=== PATIENT | female | born 1935 | race Caucasian/White ===

== ENCOUNTER 2017-03-30 12:28 | Inpatient (IN) | payer MEDICARE ==
[2017-03-30 14:01] LABS: #Eosinphils 0.1 thou/uL (0.0-0.7); #Lymphocytes 1.1 thou/uL (1.20-3.40); #Monocytes 0.3 thou/uL (0.11-0.59); #Neutrophils 6.7 thou/uL (1.40-6.50); %Basophils 0.6 % (0.0-1.0); %Monocytes 4.1 % (0.0-10.0); Hematocrit 40.1 % (36.0-47.0); Mean Platelet Volume 8.6 fL (7.4-10.4); Red Blood Cell (RBC) Count 4.18 mill/uL (4.20-5.40); White Blood Cell (WBC) Count 8.2 thou/uL (4.8-10.8)
[2017-03-30 14:04] LABS: PTT 28.3 SEC (22.9-36.1); Prothrombin Time 13.7 SEC (12.0-14.7)
[2017-03-30 14:17] LABS: ALT (SGPT) 8 U/L (8-55); AST (SGOT) 20 U/L (5-34); Alkaline Phosphatase 93 U/L (40-150); Anion Gap 18 mmol/L (10-20); BUN (Urea Nitrogen) 34 mg/dL (9.8-20.1); Bilirubin, Total 0.8 mg/dL (0.2-1.2); CK (CPK) 78 U/L (29-168); Calc. Creatinine Clearance 0 mL/min (70-130); Calcium 9.4 mg/dL (7.8-10.44); Carbon Dioxide 20 mmol/L (23-31); Chloride 105 mmol/L (98-107); Estimated GFR-MDRD 27; Globulin 4.3 g/dL (2.4-3.5); Lipase 137 U/L (8-78); Magnesium 2.9 mg/dL (1.6-2.6); Protein, Total 7.9 g/dL (6.0-8.3)
[2017-03-30 14:29] LABS: Troponin I Less than 0.010 ng/mL (< 0.028)
[2017-03-30] MEDS ORDERED: Calcium Chloride 1 GM/10 ML Abboject SYRINGE ONE (14:48)
[2017-03-30] MEDS ORDERED: Dextrose 50% Abboject 50 ML SYRINGE ONE (14:48)
[2017-03-30] MEDS ORDERED: Insulin Regular 300 UNITS/3 ML VIAL ONE (14:48)
--- NOTE | 2017-03-30 15:55 | RAD ---
SINGLE VIEW OF CHEST: Date: 03/30/17 COMPARISON: None. HISTORY: Cough, shortness of breath, dizziness, and hallucinations. FINDINGS: Single view of the chest shows a normal sized cardiomediastinal silhouette. There is no evidence of consolidation, mass, or pleural effusion. Degenerative changes are seen in the spine. IMPRESSION: No evidence of acute cardiopulmonary disease. POS: [facility]
[2017-03-30 16:15] LABS: Bilirubin Negative (Negative); Blood, Urine Negative (Negative); Glucose, Urine (Dipstick) >=1000 mg/dL (Negative); Ketone, Urine Negative (Negative); Nitrite Negative (Negative); Protein, Urine (Dipstick) Negative (Neg-Trace); Urobilinogen 0.2 mg/dL (0.2-1.0)
[2017-03-30 16:18] LABS: Bacteria/HPF Rare-Few HPF (None Seen); Hyaline Casts/LPF 0-3 HYALINE CAST LPF (0-3 Hyaline); RBC/HPF None Seen HPF (0-3)
[2017-03-30] MEDS ORDERED: Ondansetron HCl/PF 4 MG/2 ML Vial IVP PRN (16:57)
[2017-03-30] MEDS ORDERED: Ondansetron ODT 4 MG TAB SL PRN (16:57)
[2017-03-30] MEDS ORDERED: Sodium Chloride 0.9% 1,000 ML IV SCH (18:00)
[2017-03-30 18:03] LABS: Anion Gap 11 mmol/L (10-20); BUN (Urea Nitrogen) 34 mg/dL (9.8-20.1); Calc. Creatinine Clearance 0 mL/min (70-130); Calcium 9.7 mg/dL (7.8-10.44); Carbon Dioxide 26 mmol/L (23-31); Chloride 108 mmol/L (98-107); Estimated GFR-MDRD 30
[2017-03-30] MEDS ORDERED: Fluticasone Propionate Nasal Spray 16 gm Bottle NASAL PRN (18:09)
[2017-03-30] MEDS ORDERED: Loratadine 5 MG/5 ML UDCUP PO PRN (18:09)
[2017-03-30] MEDS ORDERED: Dextrose 5% in Water 1,000 ML IV PRN (18:11)
[2017-03-30] MEDS ORDERED: HumaLOG 300 UNITS/3 ML VIAL SC PRN ×2 (18:11)
[2017-03-30] MEDS ORDERED: Dextrose 50% Abboject 50 ML SYRINGE SLOW IVP PRN (18:11)
[2017-03-30 19:33] VITALS: BMI 37.5
[2017-03-30] MEDS ORDERED: Donepezil HCl 10 MG TAB PO SCH (21:00)
[2017-03-30] MEDS: Fish Oil 1,000 MG CAP PO SCH (21:05)
--- NOTE | 2017-03-30 21:28 | HP-2 ---
CODE STATUS: Full. PRIMARY CARE PHYSICIAN: [facility]. ATTENDING PHYSICIAN: Dr. Reynoso. RESIDENT: Dr. Turner Wilson. HISTORIAN: Son. CHIEF COMPLAINT: Cough and congestion. HISTORY OF PRESENT ILLNESS: An 82-year-old female with a past medical history of Alzheimer dementia, who presents with 1 day history of cough and congestion. The patient went to Urgent Care and received a chest x-ray, which did not show pneumonia or volume overload. The patient has CHF. Son was concerned for pneumonia. Patient also states that she saw some dots at the corner of her eyes earlier. No fever. No complaints of dysuria. PAST MEDICAL HISTORY: CHF, hypertension, type 2 diabetes, Alzheimer's and atrial fibrillation. PAST SURGICAL HISTORY: Left shoulder, and hysterectomy. MEDICATIONS: Farxiga, amlodipine, pioglitazone, Onglyza, losartan, vitamin D3, donepezil, Crestor, Namenda and Seroquel. SOCIAL HISTORY: Denies alcohol, drug use or tobacco use. REVIEW OF SYSTEMS: Endorses vision changes. Endorses cough. Endorses congestion. Denies all other review of systems. PHYSICAL EXAMINATION: VITAL SIGNS: Blood pressure 171/74, pulse of 79, respiratory rate of 20 and T- max 97.8, pulse ox 94% on room air. Current weight 102. GENERAL: Alert and oriented x3, in no apparent distress, well-developed, well- nourished, obese, appropriate and interactive. EYES: PERRLA. EOMI. ENT: Nasal mucosa within normal limits. Oropharynx within normal limits. NECK: Supple. No lymphadenopathy, no thyromegaly. CARDIOVASCULAR: Regular rate and rhythm, 2/6 systolic murmur. RESPIRATORY: Normal effort. No retractions. Clear to auscultation bilaterally. SKIN: Warm and dry. ABDOMEN: Soft and nontender to palpation. Positive bowel sounds. NEUROLOGIC: No focal deficits. MUSCULOSKELETAL: Structurally within normal limits. LABORATORY DATA: CBC: White blood cell count 8.2, hemoglobin and hematocrit 13 and 40 and platelets 204. Chemistry: 137, 5.9, 105, 20, 34, 1.8, glucose 124, CK 78, CK-MB 1, troponin less than 0.01, BNP 125 and lipase 137. EKG: Sinus rhythm with some PVCs. Chest x-ray: No acute process. ASSESSMENT AND PLAN: This is an 82-year-old female with a past medical history of Alzheimer dementia, who presents with symptoms of cough and congestion, admitted for an acute kidney injury on chronic kidney disease associated with hyperkalemia. 1. RANCHO on CKD: The patient was admitted to inpatient and was started on low rate of fluids. The patient's urine sodium and creatinine were checked. 2.Hyperkalemia. Patient was given D5 and insulin and calcium chloride in the Emergency Department. We will repeat a BMP in the morning. Follow closely. 3. Diabetes type 2. We will get a hemoglobin A1c, Accu-Cheks and sliding scale insulin. 4. Hypertension. We will restart her home medications. 5. Alzheimer's. We will restart her home medications. 6. Atrial fibrillation. We will restart her home medications. 7. Activity: Ambulate with assist. 8. Diet: Heart healthy. 9. Deep venous thrombosis prophylaxis, sequential compression devices. We will provide fall precautions. 10. Probable upper respiratory tract infection. We will provide supportive care. DISPOSITION AND LENGTH OF STAY: One day. Symptomatic medications will be provided. History and physical exam as well as management discussed with Dr. Reynoso. MARY
[2017-03-30 23:47] LABS: Anion Gap 12 mmol/L (10-20); BUN (Urea Nitrogen) 32 mg/dL (9.8-20.1); Calc. Creatinine Clearance 48 mL/min (70-130); Calcium 9.2 mg/dL (7.8-10.44); Carbon Dioxide 25 mmol/L (23-31); Chloride 107 mmol/L (98-107); Estimated GFR-MDRD 34
[2017-03-31 06:24] LABS: #Eosinphils 0.3 thou/uL (0.0-0.7); #Lymphocytes 1.6 thou/uL (1.20-3.40); #Monocytes 0.4 thou/uL (0.11-0.59); #Neutrophils 4.1 thou/uL (1.40-6.50); %Basophils 0.3 % (0.0-1.0); %Eosinophils 4.6 % (0.0-10.0); %Lymphocytes 24.6 % (21.0-51.0); %Monocytes 5.9 % (0.0-10.0); Hematocrit 36.9 % (36.0-47.0); Mean Platelet Volume 8.7 fL (7.4-10.4); Red Blood Cell (RBC) Count 3.83 mill/uL (4.20-5.40); White Blood Cell (WBC) Count 6.4 thou/uL (4.8-10.8)
[2017-03-31 06:40] LABS: Anion Gap 10 mmol/L (10-20); BUN (Urea Nitrogen) 30 mg/dL (9.8-20.1); Calc. Creatinine Clearance 52 mL/min (70-130); Calcium 9.3 mg/dL (7.8-10.44); Carbon Dioxide 25 mmol/L (23-31); Chloride 108 mmol/L (98-107); Estimated GFR-MDRD 37; Magnesium 2.3 mg/dL (1.6-2.6); Phosphorus 3.4 mg/dL (2.3-4.7)
--- NOTE | 2017-03-31 07:21 | PDOC.FM ---
- Subjective Subjective: Pt doing better. Resting in bed. Denies any pain or complaints at this time. Denies any fever, chills or SOB. cough is doing better. No other questions or complaints. - Objective Vital Signs & Weight: Vital Signs (12 hours) Temp Pulse Resp BP Pulse Ox 03/31/17 07:11 96.1 F L 67 20 167/74 H 993 H 03/31/17 04:00 98.0 F 63 18 149/68 H 91 L 03/30/17 23:43 98.5 F 69 18 139/64 93 L 03/30/17 21:05 97.3 F L 73 18 141/70 H 96 03/30/17 20:00 97.3 F L 73 18 96 Weight Weight 99.79 kg I&O: 03/30/17 03/31/17 04/01/17 06:59 06:59 06:59 Intake Total 720 Output Total 625 Balance 95 Result Diagrams: 03/31/17 05:22 03/31/17 05:22 Radiology Reviewed by me: Yes Radiology: CXR 03/30: No evidence acute pulmonary dz Phys Exam - Physical Examination HEENT: moist MMs, oral pharynx no lesions Neck: no nodes Respiratory: no wheezing, no rales, no rhonchi, clear to auscultation bilateral Cardiovascular: RRR, no significant murmur, no rub, gallop Gastrointestinal: soft, non-tender, no distention, positive bowel sounds Neurological: non-focal Psychiatric: normal affect Skin: no rash, normal turgor, cap refill <2 seconds Dx/Plan (1) Hyperkalemia Code(s): E87.5 - HYPERKALEMIA Status: Acute (2) Alzheimer's dementia Code(s): G30.9 - ALZHEIMER'S DISEASE, UNSPECIFIED Status: Acute (3) Atrial fibrillation Code(s): I48.91 - UNSPECIFIED ATRIAL FIBRILLATION Status: Acute (4) Viral URI with cough Code(s): J06.9 - ACUTE UPPER RESPIRATORY INFECTION, UNSPECIFIED; B97.89 - OTH VIRAL AGENTS THE CAUSE OF DISEASES CLASSD ELSWHR Status: Acute - Plan Plan: Hyperkalemia (resolved) -given D5 and insulin. -Potassium has improved RANCHO on CKD (resolved) -Cr now at baseline Diabetes type 2 -Mild SSI HTN -cont [facility] A. Fib -cont home meds Viral URI -supportive care
[2017-03-31] MEDS: Fish Oil 1,000 MG CAP PO SCH (08:32)
[2017-03-31] MEDS ORDERED: AMLODIPIN PO SCH (09:00)
[2017-03-31] MEDS ORDERED: HCTHIAZID PO SCH (09:00)
[2017-03-31] MEDS ORDERED: Aspirin 81 mg Enteric Coated Tablet PO SCH (09:00)
[2017-03-31] MEDS ORDERED: [UNRECOGNIZED DRUG - OTHER] PO SCH (09:00)
[2017-03-31] MEDS ORDERED: OLMESARTAN PO SCH (09:00)
[2017-03-31] MEDS ORDERED: Hydrochlorothiazide 25 MG TAB PO SCH (09:00)
[2017-03-31] MEDS ORDERED: Alogliptin Benzoate 25 MG TABLET PO SCH (09:00)
[2017-03-31] MEDS ORDERED: Pioglitazone HCl 15 MG TAB PO SCH (09:00)
[2017-03-31 11:28] VITALS: BP 128/83; TEMP 97.4
--- NOTE | 2017-03-31 17:41 | HP ---
I have reviewed the history and physical of Dr. Abeba Tompkins and agreed with her assessment and plan . HISTORY OF PRESENT ILLNESS: Briefly, Ms. Sorensen was admitted with cough and congestion. She was af ebrile and had no respiratory distress. PHYSICAL EXAMINATION: VITAL SIGNS: Her blood pressure was 170/70, pulse rate 80, respirations were 18 and not labored. S he is afebrile, pulse ox is 94% on room air. HEENT: Clear. CARDIAC: Heart rhythm regular. LUNGS: Breath sounds are slightly diminished, but clear. No rales or wheezes noted. ABDOMEN: Soft. LABORATORY DATA: White count 8200, hemoglobin 13. Electrolytes were normal. There was a hyperkale mona, but it was a hemolyzed specimen and repeat was normal. The patient was rehydrated and discharged today. DISCHARGE DIAGNOSIS: Volume depletion, resolved.
== END 2017-03-31 14:16 | disposition home or self-care (01) | DRG 683 ==
LOC: ERS 12:28 → 2NO 16:40
PROVIDERS: ADMIT Family Medicine; ATTEND Family Medicine
DX: N17.9 Acute kidney failure, unspecified (principal); I13.0 Hypertensive heart and chronic kidney disease with heart failure and stage 1 through stage 4 chronic kidney disease, or unspecified chronic kidney disease; E86.9 Volume depletion, unspecified; E11.22 Type 2 diabetes mellitus with diabetic chronic kidney disease; G30.9 Alzheimer's disease, unspecified; I50.9 Heart failure, unspecified; I48.91 Unspecified atrial fibrillation; J06.9 Acute upper respiratory infection, unspecified; F02.80 Dementia in other diseases classified elsewhere, unspecified severity, without behavioral disturbance, psychotic disturbance, mood disturbance, and anxiety; N18.3 Chronic kidney disease, stage 3 (moderate)
CPT/HCPCS: 36415; 36416; 71010; 80048; 80053; 81003; 81015; 82553; 82570; 83690; 83735; 83880; 84100; 84300; 84484; 85025; 85610; 85730; 87040; 87086; 93005; 96374; 96375; J1815

== ENCOUNTER 2017-04-09 03:06 | Emergency (ER) | payer MEDICARE ==
[2017-04-09 04:11] LABS: #Eosinphils 0.3 thou/uL (0.0-0.7); #Lymphocytes 1.1 thou/uL (1.20-3.40); #Monocytes 0.5 thou/uL (0.11-0.59); #Neutrophils 6.3 thou/uL (1.40-6.50); %Basophils 0.1 % (0.0-1.0); %Eosinophils 3.9 % (0.0-10.0); %Lymphocytes 13.4 % (21.0-51.0); %Monocytes 5.6 % (0.0-10.0); Hematocrit 37.4 % (36.0-47.0); Mean Platelet Volume 7.8 fL (7.4-10.4); Red Blood Cell (RBC) Count 3.96 mill/uL (4.20-5.40); White Blood Cell (WBC) Count 8.2 thou/uL (4.8-10.8)
[2017-04-09 04:22] LABS: PTT 29.6 SEC (22.9-36.1); Prothrombin Time 13.7 SEC (12.0-14.7)
[2017-04-09 04:29] LABS: ALT (SGPT) 8 U/L (8-55); AST (SGOT) 8 U/L (5-34); Alkaline Phosphatase 82 U/L (40-150); Anion Gap 13 mmol/L (10-20); BUN (Urea Nitrogen) 39 mg/dL (9.8-20.1); Bilirubin, Total 0.9 mg/dL (0.2-1.2); CK (CPK) 57 U/L (29-168); Calc. Creatinine Clearance 0 mL/min (70-130); Calcium 9.7 mg/dL (7.8-10.44); Carbon Dioxide 24 mmol/L (23-31); Chloride 108 mmol/L (98-107); Estimated GFR-MDRD 33; Protein, Total 6.6 g/dL (6.0-8.3)
[2017-04-09 04:32] LABS: Troponin I Less than 0.010 ng/mL (< 0.028)
[2017-04-09 04:57] LABS: Bilirubin Negative (Negative); Blood, Urine Negative (Negative); Glucose, Urine (Dipstick) >=1000 mg/dL (Negative); Ketone, Urine Negative (Negative); Nitrite Negative (Negative); Protein, Urine (Dipstick) Negative (Neg-Trace); Urobilinogen 0.2 mg/dL (0.2-1.0)
[2017-04-09 04:59] LABS: Bacteria/HPF Rare-Few HPF (None Seen); Hyaline Casts/LPF 0-3 HYALINE CAST LPF (0-3 Hyaline)
[2017-04-09 05:26] LABS: RBC/HPF 0-3 HPF (0-3)
--- NOTE | 2017-04-09 07:58 | RAD ---
PORTABLE CHEST 1 VIEW: Date: 04/09/17 Time: 0411 hours HISTORY: Altered mental status. FINDINGS: Comparison made with exam of 03/30/17. The heart size is enlarged. There is continued elevation of the right hemidiaphragm. No confluent ar eas of consolidation, pneumothorax, rk pulmonary edema, or pleural effusions are seen. There are degenerative changes in the spine. IMPRESSION: No acute process. POS: [facility]
== END 2017-04-09 06:01 | disposition home or self-care (01) ==
LOC: ERS 03:06
DX: R45.1 Restlessness and agitation (principal); I48.91 Unspecified atrial fibrillation; E11.9 Type 2 diabetes mellitus without complications; I10 Essential (primary) hypertension; E78.5 Hyperlipidemia, unspecified; Z79.82 Long term (current) use of aspirin; Z79.899 Other long term (current) drug therapy
CPT/HCPCS: 36415; 36416; 71010; 80053; 81003; 81015; 82553; 84484; 85025; 85610; 85730; 93005; 94760

== ENCOUNTER 2018-08-22 13:10 | Observation (INO) | payer MEDICARE ==
[2018-08-22 14:56] LABS: Bilirubin Moderate (Negative); Blood, Urine Small (Negative); Clarity CLOUDY (Clear); Glucose, Urine (Dipstick) Negative (Negative); Leukocyte Large (Negative); Nitrite Negative (Negative); Protein, Urine (Dipstick) 100 mg/dL (Neg-Trace); pH, Urine 5.5 (5.0-9.0)
[2018-08-22 14:59] LABS: Bacteria/HPF 2+ HPF (None Seen); Hyaline Casts/LPF 0-3 HYALINE CAST LPF (0-3 Hyaline); Pathc Cast-AUWi Flag 0.68 (0-2.49); Squamous Epithelial 0-3 HPF (0-3)
--- NOTE | 2018-08-22 15:08 | RAD ---
PORTABLE AP CHEST X-RAY: HISTORY: Altered mental status. COMPARISON: 04/09/2017 FINDINGS: The cardiac silhouette is enlarged. The pulmonary vasculature is within normal limits. The lungs ar e clear. An anterior screw overlies the left humeral head. No other interval change. IMPRESSION: 1. No acute cardiopulmonary process. 2. Mild cardiomegaly. 3. Elevation of right hemidiaphragm. POS: [facility]
[2018-08-22 15:10] LABS: WBC/HPF 21-50 HPF (0-3)
[2018-08-22 15:15] LABS: #Eosinphils 0.1 thou/uL (0.0-0.7); #Lymphocytes 1.2 thou/uL (1.20-3.40); #Monocytes 0.3 thou/uL (0.11-0.59); #Neutrophils 6.2 thou/uL (1.40-6.50); %Eosinophils 1.5 % (0.0-10.0); %Monocytes 4.3 % (0.0-10.0); %Neutrophils 79.1 % (42.0-75.0); Hemoglobin 12.9 g/dL (12.0-16.0); Mean Corpuscular HGB CONC 31.4 g/dL (32.0-36.0); Mean Corpuscular Hemoglobin 31.5 pg (27.0-31.0); Mean Platelet Volume 8.5 fL (7.4-10.4); Platelet Count 193 thou/uL (130-400); RBC Distribution Width 13.8 % (11.5-14.5); White Blood Cell (WBC) Count 7.9 thou/uL (4.8-10.8)
[2018-08-22 15:38] LABS: ALT (SGPT) Less than 7 U/L (8-55); AST (SGOT) 12 U/L (5-34); Albumin 3.6 g/dL (3.4-4.8); Alkaline Phosphatase 76 U/L (40-150); Anion Gap 18 mmol/L (10-20); BUN (Urea Nitrogen) 38 mg/dL (9.8-20.1); Bilirubin, Total 1.4 mg/dL (0.2-1.2); Calc. Creatinine Clearance 0 mL/min (70-130); Calcium 9.6 mg/dL (7.8-10.44); Carbon Dioxide 24 mmol/L (23-31); Chloride 107 mmol/L (98-107); Estimated GFR-MDRD 26; Globulin 2.8 g/dL (2.4-3.5); Glucose 110 mg/dL (83-110); Lipase 38 U/L (8-78); Potassium 3.6 mmol/L (3.5-5.1); Protein, Total 6.4 g/dL (6.0-8.3); Sodium 145 mmol/L (136-145)
--- NOTE | 2018-08-22 16:17 | PDOC.FPRHP ---
- History of Present Illness Chief Complaint: decreased PO intake History of Present Illness: Patient is an 83YOF w/ a PMH significant for advanced Alzheimer's dementia and atrial fibrillation who was brought in by family due to decreased PO intake and weakness over the last week. Due to patient's advanced dementia, history was obtained from children who were at the bedside. Patient currently lives at home with her son who reports she has gotten progressively weaker, more fatigued, and had decreased PO intake since the start of this week. Son reports she may have had only 2 bottles of water to drink in the last week. Daughter endorses associated fatigue and says patient has been sleeping almost all day everyday of this week. Typically ambulates with walker at home but has only gotten up to go to bathroom. Has had a few episodes of incontinence as well. ED Course: 1g Rocephin & 1L NS - Allergies/Adverse Reactions Allergies Allergy/AdvReac Type Severity Reaction Status Date / Time bacitracin Allergy Verified 01/19/13 13:14 [From Neosporin ([id number])] bacitracin zinc Allergy Verified 01/19/13 13:14 [From Neosporin ([id number])] ketoconazole Allergy Verified 01/19/13 13:16 lanolin Allergy Verified 01/19/13 13:15 milk Allergy Verified 01/19/13 13:12 neomycin sulfate Allergy Verified 01/19/13 13:14 [From Neosporin ([id number])] Penicillins Allergy Verified 01/19/13 13:14 polymyxin B Allergy Verified 01/19/13 13:14 [From Neosporin ([id number])] Sulfa (Sulfonamide Allergy Verified 01/19/13 13:14 Antibiotics) VIT C Allergy Uncoded 01/19/13 13:13 - Home Medications Medication Instructions Recorded Confirmed Type Cetirizine HCl [Zyrtec] 10 mg PO DAILY PRN 01/19/13 03/30/17 History Menthol/Herbal Drugs [Cough Drops] 1 lozenge MM ASDIR PRN 01/19/13 03/30/17 History diphenhydrAMINE HCl [Benadryl] 25 mg PO Q6HR PRN 01/19/13 03/30/17 History Amlodipine [Norvasc] 5 mg PO DAILY 03/30/17 03/30/17 History Dapagliflozin Propanediol [Farxiga] 5 mg PO QAM 03/30/17 03/30/17 History Donepezil HCl 10 mg PO HS 03/30/17 03/30/17 History Losartan Potassium [Cozaar] 100 mg PO DAILY 03/30/17 03/30/17 History Memantine HCl [Namenda XR] 28 mg PO HS 03/30/17 03/30/17 History Pioglitazone HCl 15 mg PO DAILY 03/30/17 03/30/17 History QUEtiapine Fumarate [SEROquel] 25 mg PO HS 03/30/17 03/30/17 History Saxagliptin HCl [Onglyza] 2.5 mg PO DAILY 03/30/17 03/30/17 History Aspirin [Ecotrin Low Strength] 81 mg PO DAILY tab 03/31/17 Rx Cholecalciferol [Vitamin D3] 1,000 units PO DAILY tab 03/31/17 Rx Fish Oil 2,000 mg PO BID cap 03/31/17 Rx Fluticasone Propionate [Flonase 0 gm NASAL DAILYPRN PRN #0 bot 03/31/17 Rx Nasal Albert] Rosuvastatin [Crestor] 5 mg PO DAILY tab 03/31/17 Rx metFORMIN [Glucophage] 500 mg PO BID-WM tab 03/31/17 Rx - History PMHx: DMII, HTN, CHF, CKD? (sees Dr. Eduardo), dementia PSHx: hysterectomy, R shoulder surgery, bladder tact surgery, FHx: Father: CA Mother: ESRD 2/2 DMII Sister: alzheimer's Sister: breast [place] Social: Lives at home with son currently. Plans to discharge her to [facility] from hospital. No tobacco, EtOH, or drug use. - Review of Systems General: reports: weight/appetite/sleep changes, fatigue ENT: denies: nasal congestion Respiratory: reports: cough (worse at night when laying down per son). denies: congestion, shortness of breath Cardiovascular: denies: chest pain Gastrointestinal: reports: diarrhea. denies: nausea, vomiting, abdominal pain Genitourinary: reports: incontinence, other (+ frequency). denies: dysuria Skin: denies: rashes Musculoskeletal: reports: pain, swelling (LE edema no more than baseline) Neurological: reports: weakness - Vital signs BP: 146/86 HR: 70 RR: 20 Tmax: 98.6F Pox: 95% on RA Wt: 99.79 kg - Physical Exam Constitutional: NAD, well developed -Constitutional: Oriented to self only HEENT: normocephalic and atraumatic, grossly normal vision, grossly normal hearing Neck: supple, FROM Heart: RRR, pulses present, other (3/6 systolic murmur hear best at mitral listening post) Lungs: CTAB, no respiratory distress, no wheezing Abdomen: soft, bowel sounds present, other (suprapubic tenderness noted) Musculoskeletal: normal structure, ROM grossly normal, other (left mid back tenderness but not exquisitely tender) Neurological: no focal deficit, other (5/5 strength throughout) Skin: no rash/lesions, no jaundice, other (decreased turgor) Heme/Lymphatic: no unusual bruising or bleeding, no purpura, no petechia Psychiatric: normal mood and affect, other (poor recent and remote memory) FMR H&P: Results - Labs Result Diagrams: 08/22/18 15:02 08/22/18 15:02 Lab results: WBC 7.9 thou/uL (4.8-10.8) 08/22/18 15:02 Hgb 12.9 g/dL (12.0-16.0) 08/22/18 15:02 Hct 41.1 % (36.0-47.0) 08/22/18 15:02 MCV 100.0 fL (78.0-98.0) H 08/22/18 15:02 Plt Count 193 thou/uL (130-400) 08/22/18 15:02 Neutrophils % 79.1 % (42.0-75.0) H 08/22/18 15:02 Sodium 145 mmol/L (136-145) 08/22/18 15:02 Potassium 3.6 mmol/L (3.5-5.1) 08/22/18 15:02 Chloride 107 mmol/L (98-107) 08/22/18 15:02 Carbon Dioxide 24 mmol/L (23-31) 08/22/18 15:02 BUN 38 mg/dL (9.8-20.1) H 08/22/18 15:02 Creatinine 1.89 mg/dL (0.6-1.1) H 08/22/18 15:02 Glucose 110 mg/dL (83-110) 08/22/18 15:02 Calcium 9.6 mg/dL (7.8-10.44) 08/22/18 15:02 Total Bilirubin 1.4 mg/dL (0.2-1.2) H 08/22/18 15:02 AST 12 U/L (5-34) 08/22/18 15:02 ALT Less than 7 U/L (8-55) L 08/22/18 15:02 Alkaline Phosphatase 76 U/L (40-150) 08/22/18 15:02 Ammonia 30 umol/L (18-72) 08/22/18 15:02 CK-MB (CK-2) 1.0 ng/mL (0-6.6) 08/22/18 15:02 Serum Total Protein 6.4 g/dL (6.0-8.3) 08/22/18 15:02 Albumin 3.6 g/dL (3.4-4.8) 08/22/18 15:02 Lipase 38 U/L (8-78) 08/22/18 15:02 Urine Ketones Trace mg/dL (Negative) H 08/22/18 14:16 Urine Blood Small (Negative) H 08/22/18 14:16 Urine Nitrite Negative (Negative) 08/22/18 14:16 Ur Leukocyte Esterase Large (Negative) H 08/22/18 14:16 Urine RBC 7-10 HPF (0-3) H 08/22/18 14:16 Urine WBC 21-50 HPF (0-3) H 08/22/18 14:16 Ur Squamous Epith Cells 0-3 HPF (0-3) 08/22/18 14:16 Urine Bacteria 2+ HPF (None Seen) H 08/22/18 14:16 FMR H&P: A/P - Problem List (1) UTI (urinary tract infection) Current Visit: Yes Status: Acute (2) RANCHO (acute kidney injury) Current Visit: Yes Status: Acute Code(s): N17.9 - ACUTE KIDNEY FAILURE, UNSPECIFIED (3) CKD (chronic kidney disease) stage 3, GFR 30-59 ml/min Current Visit: Yes Status: Acute Code(s): N18.3 - CHRONIC KIDNEY DISEASE, STAGE 3 (MODERATE) (4) HTN (hypertension) Current Visit: Yes Status: Acute Code(s): I10 - ESSENTIAL (PRIMARY) HYPERTENSION (5) Diabetes Current Visit: Yes Status: Acute Code(s): E11.9 - TYPE 2 DIABETES MELLITUS WITHOUT COMPLICATIONS (6) CHF (congestive heart failure) Current Visit: Yes Status: Acute Code(s): I50.9 - HEART FAILURE, UNSPECIFIED (7) Alzheimer's dementia Current Visit: No Status: Acute Code(s): G30.9 - ALZHEIMER'S DISEASE, UNSPECIFIED (8) Atrial fibrillation Current Visit: No Status: Acute Code(s): I48.91 - UNSPECIFIED ATRIAL FIBRILLATION - Plan 83 yo F with PMH HTN, CHF, DM2, CKD3, alzheimers admitted for uncomplicated UTI. UTI, uncomplicated - UA with large leuk esterase, neg nitrites, high WBC, 2+ bacteria - appeared to have suprapubic tenderness but patient endorsed diffuse pain - VSS - Rocephin given in ED, will continue pending urine cx and sensitivity RANCHO on CKD3 - Cr 1.89, GFR 26 (baseline 1.56/32) - 2/2 volume depletion, decreased PO intake - s/p 1L in ED, will continue LR @ 140 maintenance and recheck on am labs Elevated troponin - most likely 2/2 demand - 0.033, will continue to trend Physical deconditioning - consult PT/OT HTN - BP stable - continue home amlodipine, losartan, aspirin, crestor Alzheimer's - continue home namenda, donepezil, quetiapine - mental status at baseline per family DM2 - all DM medications discontinued except for pioglitazone per family. Will not continue at this time considering reported hx of CHF CHF - unsure of history of this. Not on expected CHF meds and unknown EF - will monitor for signs of volume overload with fluid resuscitation Diet: HH/CC Ppx: SCDs Dispo: Admit to telemetry. consult case management to assist in discharge planning as family plans for patient to be discharged to "[facility] in [place] Case discussed with Dr. Nolen. FMR H&P: Upper Level - Pertinent history Nisreen Sorensen is a 83 year old female with a history of alzheimer's dementia who was brought to the ED by her son due to concern for worsening confusion and decreased PO intake with generalized weakness. - Pertinent findings Exam General: alert and oriented x 1 at baseline. Heart: irregularly irregular rate; 3-6/6 holosystolic murmur radiating to carotids. Lungs: clear to auscultation bilaterally. Abdomen: mild suprapubic tenderness. Labs: as described above. - Plan Date/Time: 08/22/18 [id number] I,Nuha Miller, have evaluated this patient and agree with findings/plan as outlined by advisory intern resident. Pertinent changes/additions are listed here. 1. Moderate dehydration. 2. Acute kidney injury. 3. indeterminately elevated troponin 4. Will admit patient to telemetry for observation. Plan to continue IV fluid hydration. will recheck BMP in AM. Regarding UTI will continue IV antibiotics and check urine culture. Pt's family wishes to place patient in a chcf. Will consult CM for assistance with this. Regarding chronic medical problems, will restart all home medications.
[2018-08-22] MEDS ORDERED: cefTRIAXone\\ROCEPHIN 1 GM VIAL ONE (16:18)
[2018-08-22] MEDS ORDERED: Ondansetron ODT 4 MG TAB PO PRN (16:49)
[2018-08-22] MEDS ORDERED: Dextrose 50% Abboject 50 ML SYRINGE SLOW IVP PRN (16:49)
[2018-08-22] MEDS ORDERED: Acetaminophen 325 MG TAB PO PRN (16:49)
[2018-08-22] MEDS ORDERED: Dextrose 5% in Water 1,000 ML IV PRN (16:49)
[2018-08-22 18:02] LABS: Hemoglobin A1c 5.5 % (4.0-6.0)
[2018-08-22 18:38] LABS: Troponin I 0.022 ng/mL (< 0.028)
[2018-08-22] MEDS ORDERED: Amlodipine 5 MG TAB PO SCH (20:15)
[2018-08-22] MEDS ORDERED: Losartan 25 MG TAB PO SCH (20:15)
[2018-08-22] MEDS: Donepezil HCl 10 MG TAB PO SCH (20:45)
[2018-08-22] MEDS: Rosuvastatin 10 MG TAB PO SCH (20:45)
[2018-08-22] MEDS: Lactated Ringer's 1,000 ML IV SCH ×2 (20:47)
[2018-08-22 21:27] LABS: Troponin I 0.023 ng/mL (< 0.028)
[2018-08-23] MEDS: Lactated Ringer's 1,000 ML IV SCH (03:44)
--- NOTE | 2018-08-23 06:01 | PDOC.FM ---
- Subjective Subjective: Ms. Sorensen has no specific complaints. Denies pain. Son present in room and says she slept well last night. Ate a few bites of chicken last night. Drinking water well. - Objective Vital Signs & Weight: Vital Signs (12 hours) Temp Pulse Resp BP BP Pulse Ox 08/23/18 03:56 98.0 F 62 18 169/70 H 95 08/22/18 23:00 97.9 F 68 16 145/61 H 94 L 08/22/18 20:47 63 176/76 H 08/22/18 18:35 97.5 F L 80 16 181/91 H 95 Weight Weight 91.881 kg I&O: 08/21/18 08/22/18 08/23/18 06:59 06:59 06:59 Intake Total 240 Output Total 300 Balance -60 Result Diagrams: 08/23/18 06:14 08/23/18 06:14 Phys Exam - Physical Examination Respiratory: no wheezing, clear to auscultation bilateral Cardiovascular: RRR 3/6 systolic murmur Gastrointestinal: soft, no distention, positive bowel sounds mild b/l LE edema Neurological: non-focal Dx/Plan (1) UTI (urinary tract infection) Status: Acute (2) RANCHO (acute kidney injury) Code(s): N17.9 - ACUTE KIDNEY FAILURE, UNSPECIFIED Status: Acute (3) CKD (chronic kidney disease) stage 3, GFR 30-59 ml/min Code(s): N18.3 - CHRONIC KIDNEY DISEASE, STAGE 3 (MODERATE) Status: Acute (4) HTN (hypertension) Code(s): I10 - ESSENTIAL (PRIMARY) HYPERTENSION Status: Acute (5) Diabetes Code(s): E11.9 - TYPE 2 DIABETES MELLITUS WITHOUT COMPLICATIONS Status: Acute (6) CHF (congestive heart failure) Code(s): I50.9 - HEART FAILURE, UNSPECIFIED Status: Acute (7) Alzheimer's dementia Code(s): G30.9 - ALZHEIMER'S DISEASE, UNSPECIFIED Status: Acute (8) Atrial fibrillation Code(s): I48.91 - UNSPECIFIED ATRIAL FIBRILLATION Status: Acute - Plan Plan: 83 yo F with PMH HTN, CHF, DM2, CKD3, alzheimers admitted for uncomplicated UTI. UTI, uncomplicated - UA with large leuk esterase, neg nitrites, high WBC, 2+ bacteria - appeared to have suprapubic tenderness but patient endorsed diffuse pain - VSS - Rocephin given in ED, will transition to PO today. Urine culture pending. RANCHO on CKD3, resolved - Cr 1.89, GFR 26 (baseline 1.56/32), improved on am labs today - 2/2 volume depletion, decreased PO intake - RANCHO resolved and patient tolerating liquids well. D/c IVF. Elevated troponin, resolved - most likely 2/2 demand - 0.033 max, trended down Physical deconditioning - consult PT/OT HTN - BP elevated overnight - continue home amlodipine, losartan, aspirin, crestor Alzheimer's - continue home namenda, donepezil, quetiapine - mental status at baseline per family DM2 - pioglitazone is only home med. Did not continue with pt hx CHF. - A1c 5.5, will not recommend any treatment CHF - unsure of history of this. Not on expected CHF meds and unknown EF - will monitor for signs of volume overload with fluid resuscitation Diet: HH/CC Ppx: SCDs Dispo: will discuss with case management as family desires discharge to [facility]. Patient likely appropriate for discharge today. .
[2018-08-23 06:39] LABS: #Eosinphils 0.2 thou/uL (0.0-0.7); #Lymphocytes 1.1 thou/uL (1.20-3.40); #Monocytes 0.4 thou/uL (0.11-0.59); #Neutrophils 4.1 thou/uL (1.40-6.50); %Basophils 0.4 % (0.0-1.0); %Eosinophils 3.6 % (0.0-10.0); %Lymphocytes 19.7 % (21.0-51.0); %Neutrophils 70.3 % (42.0-75.0); Hemoglobin 11.6 g/dL (12.0-16.0); Mean Corpuscular HGB CONC 31.1 g/dL (32.0-36.0); Mean Corpuscular Hemoglobin 31.4 pg (27.0-31.0); Mean Platelet Volume 8.7 fL (7.4-10.4); Platelet Count 166 thou/uL (130-400); RBC Distribution Width 13.7 % (11.5-14.5); White Blood Cell (WBC) Count 5.8 thou/uL (4.8-10.8)
[2018-08-23 06:58] LABS: Anion Gap 11 mmol/L (10-20); BUN (Urea Nitrogen) 30 mg/dL (9.8-20.1); Calc. Creatinine Clearance 49 mL/min (70-130); Calcium 8.9 mg/dL (7.8-10.44); Carbon Dioxide 25 mmol/L (23-31); Chloride 109 mmol/L (98-107); Estimated GFR-MDRD 39; Glucose 92 mg/dL (83-110); Potassium 3.3 mmol/L (3.5-5.1); Sodium 142 mmol/L (136-145)
[2018-08-23] MEDS: Amlodipine 5 MG TAB PO SCH (08:14)
[2018-08-23] MEDS: Losartan 25 MG TAB PO SCH (08:14)
[2018-08-23] MEDS: Aspirin 81 mg Enteric Coated Tablet PO SCH (08:14)
[2018-08-23] MEDS ORDERED: Prevnar 13-Val Conj/PF 0.5 ML SYRINGE IM ONE (09:00)
[2018-08-23] MEDS: Cefdinir 300 MG CAP PO SCH (20:47)
[2018-08-23] MEDS: Donepezil HCl 10 MG TAB PO SCH (20:47)
[2018-08-23] MEDS: Rosuvastatin 10 MG TAB PO SCH (20:47)
--- NOTE | 2018-08-24 06:06 | PDOC.FM ---
- Subjective Subjective: Ms Sorensen says she feels good and has no complaints. Family is in room and all again mention that she is unsafe to go home. Hopeful that she could be set up for rehab initially when discharged to [facility]. - Objective Vital Signs & Weight: Vital Signs (12 hours) Temp Pulse Resp BP Pulse Ox 08/24/18 04:33 97.3 F L 73 18 143/72 H 95 08/23/18 23:28 97.6 F 74 23 H 122/63 92 L 08/23/18 18:34 98.1 F 79 16 167/67 H 93 L Weight Weight 94.03 kg I&O: 08/22/18 08/23/18 08/24/18 06:59 06:59 07:59 Intake Total 1542 700 Output Total 300 1100 Balance 1242 -400 Result Diagrams: 08/24/18 05:16 08/24/18 05:16 Phys Exam - Physical Examination Constitutional: NAD Respiratory: no wheezing, clear to auscultation bilateral Cardiovascular: RRR 3/6 systolic murmur Gastrointestinal: soft, non-tender Neurological: non-focal Skin: normal turgor Dx/Plan (1) UTI (urinary tract infection) Status: Acute (2) RANCHO (acute kidney injury) Code(s): N17.9 - ACUTE KIDNEY FAILURE, UNSPECIFIED Status: Acute (3) CKD (chronic kidney disease) stage 3, GFR 30-59 ml/min Code(s): N18.3 - CHRONIC KIDNEY DISEASE, STAGE 3 (MODERATE) Status: Acute (4) HTN (hypertension) Code(s): I10 - ESSENTIAL (PRIMARY) HYPERTENSION Status: Acute (5) Diabetes Code(s): E11.9 - TYPE 2 DIABETES MELLITUS WITHOUT COMPLICATIONS Status: Acute (6) CHF (congestive heart failure) Code(s): I50.9 - HEART FAILURE, UNSPECIFIED Status: Acute (7) Alzheimer's dementia Code(s): G30.9 - ALZHEIMER'S DISEASE, UNSPECIFIED Status: Acute (8) Atrial fibrillation Code(s): I48.91 - UNSPECIFIED ATRIAL FIBRILLATION Status: Acute - Plan Plan: 83 yo F with PMH HTN, CHF, DM2, CKD3, alzheimers admitted for uncomplicated UTI. UTI, uncomplicated - UA with large leuk esterase, neg nitrites, high WBC, 2+ bacteria - VSS - Rocephin given in ED (08/22), omnicef (08/23) RANCHO on CKD3, resolved - Cr 1.89, GFR 26 (baseline 1.56/32), on admission - 2/2 volume depletion, decreased PO intake Elevated troponin, resolved - most likely 2/2 demand - 0.033 max, trended down Physical deconditioning - consult PT/OT HTN - BP stable - continue home amlodipine, losartan, aspirin, crestor Alzheimer's - continue home namenda, donepezil, quetiapine - mental status at baseline per family DM2 - pioglitazone is only home med. Did not continue with pt hx CHF. - A1c 5.5, will not recommend any treatment at discharge CHF - unsure of history of this. Not on expected CHF meds and unknown EF - will monitor for signs of volume overload with fluid resuscitation Diet: HH/CC Ppx: SCDs Dispo: patient appropriate for discharge, pending placement at [facility] which likely will not happen saturday at least. Family interested in rehab services if possible at [facility].
[2018-08-24 06:08] LABS: #Eosinphils 0.3 thou/uL (0.0-0.7); #Lymphocytes 1.3 thou/uL (1.20-3.40); #Monocytes 0.5 thou/uL (0.11-0.59); #Neutrophils 4.3 thou/uL (1.40-6.50); %Basophils 0.3 % (0.0-1.0); %Eosinophils 4.1 % (0.0-10.0); %Lymphocytes 19.8 % (21.0-51.0); %Monocytes 7.2 % (0.0-10.0); %Neutrophils 68.6 % (42.0-75.0); Hemoglobin 11.6 g/dL (12.0-16.0); Mean Corpuscular HGB CONC 30.7 g/dL (32.0-36.0); Mean Corpuscular Hemoglobin 31.2 pg (27.0-31.0); Mean Platelet Volume 8.7 fL (7.4-10.4); Platelet Count 168 thou/uL (130-400); RBC Distribution Width 13.9 % (11.5-14.5); Red Blood Cell (RBC) Count 3.71 mill/uL (4.20-5.40); White Blood Cell (WBC) Count 6.3 thou/uL (4.8-10.8)
[2018-08-24 06:29] LABS: Anion Gap 11 mmol/L (10-20); BUN (Urea Nitrogen) 25 mg/dL (9.8-20.1); Calc. Creatinine Clearance 51 mL/min (70-130); Calcium 8.8 mg/dL (7.8-10.44); Carbon Dioxide 28 mmol/L (23-31); Chloride 108 mmol/L (98-107); Estimated GFR-MDRD 40; Glucose 88 mg/dL (83-110); Potassium 3.1 mmol/L (3.5-5.1); Sodium 144 mmol/L (136-145)
[2018-08-24] MEDS: Losartan 25 MG TAB PO SCH (08:08)
[2018-08-24] MEDS: Aspirin 81 mg Enteric Coated Tablet PO SCH (08:09)
[2018-08-24] MEDS: Amlodipine 5 MG TAB PO SCH (08:09)
[2018-08-24] MEDS: Cefdinir 300 MG CAP PO SCH ×2 (08:09→21:31)
[2018-08-24] MEDS: Donepezil HCl 10 MG TAB PO SCH (21:32)
[2018-08-24] MEDS: Rosuvastatin 10 MG TAB PO SCH (21:32)
[2018-08-25 05:32] LABS: #Eosinphils 0.3 thou/uL (0.0-0.7); #Lymphocytes 1.4 thou/uL (1.20-3.40); #Monocytes 0.3 thou/uL (0.11-0.59); #Neutrophils 3.7 thou/uL (1.40-6.50); %Basophils 0.2 % (0.0-1.0); %Eosinophils 4.6 % (0.0-10.0); %Monocytes 5.7 % (0.0-10.0); %Neutrophils 64.5 % (42.0-75.0); Hemoglobin 11.8 g/dL (12.0-16.0); Mean Corpuscular HGB CONC 30.2 g/dL (32.0-36.0); Mean Corpuscular Hemoglobin 31.1 pg (27.0-31.0); Mean Platelet Volume 9.1 fL (7.4-10.4); Platelet Count 168 thou/uL (130-400); RBC Distribution Width 13.9 % (11.5-14.5); White Blood Cell (WBC) Count 5.7 thou/uL (4.8-10.8)
--- NOTE | 2018-08-25 05:48 | PDOC.FM ---
- Subjective Subjective: Patient feels well this AM, no complaints. Daughter in law present in the room. - Objective Vital Signs & Weight: Vital Signs (12 hours) Temp Pulse Resp BP Pulse Ox 08/24/18 23:16 98.0 F 77 18 121/58 L 93 L 08/24/18 19:17 97.7 F 91 20 150/78 H 94 L Weight Weight 94.03 kg I&O: 08/23/18 08/24/18 08/25/18 05:59 06:59 06:59 Intake Total 800 Output Total 300 Balance 500 Result Diagrams: 08/25/18 05:00 08/25/18 05:00 Phys Exam - Physical Examination Constitutional: NAD HEENT: moist MMs crackles bases bilaterally, decreased air movement to the bases irregularly irregular rhythm, 2/6 systolic murmur Gastrointestinal: soft, no distention, positive bowel sounds minimal diffuse tenderness to palpation, no rebound or guarding Musculoskeletal: no edema tenderness to legs bilaterally Neurological: moves all 4 limbs AO to self only Dx/Plan (1) UTI (urinary tract infection) Status: Acute (2) RANCHO (acute kidney injury) Code(s): N17.9 - ACUTE KIDNEY FAILURE, UNSPECIFIED Status: Acute (3) CHF (congestive heart failure) Code(s): I50.9 - HEART FAILURE, UNSPECIFIED Status: Chronic (4) CKD (chronic kidney disease) stage 3, GFR 30-59 ml/min Code(s): N18.3 - CHRONIC KIDNEY DISEASE, STAGE 3 (MODERATE) Status: Chronic (5) Diabetes Code(s): E11.9 - TYPE 2 DIABETES MELLITUS WITHOUT COMPLICATIONS Status: Chronic (6) HTN (hypertension) Code(s): I10 - ESSENTIAL (PRIMARY) HYPERTENSION Status: Chronic (7) Alzheimer's dementia Code(s): G30.9 - ALZHEIMER'S DISEASE, UNSPECIFIED Status: Chronic (8) Atrial fibrillation Code(s): I48.91 - UNSPECIFIED ATRIAL FIBRILLATION Status: Chronic - Plan Plan: 83 yo F with PMH HTN, CHF, DM2, CKD3, alzheimers admitted for uncomplicated UTI. UTI, uncomplicated - UA with large leuk esterase, neg nitrites, high WBC, 2+ bacteria - VSS - Rocephin given in ED (08/22), continue omnicef (08/23) RANCHO on CKD3, resolved - Cr 1.89, GFR 26 (baseline 1.56/32), on admission - 2/2 volume depletion, decreased PO intake Elevated troponin, resolved - most likely 2/2 demand - 0.033 max, trended down Physical deconditioning - consult PT/OT HTN - BP stable - continue home amlodipine, losartan, aspirin, crestor Alzheimer Dementia - continue home namenda, donepezil, quetiapine - mental status at baseline per family DM2 - pioglitazone is only home med. Did not continue with pt hx CHF. - A1c 5.5, will not recommend any treatment at discharge CHF - unsure of history of this. Daughter in law not aware. Not on expected CHF meds and unknown EF - lung crackles on exam, mild cardiomegaly on CXR 08/22 but no fluid overload at that time - BNP pending Hx Atrial fib - Sees Dr. Law outpatient - Atrial fib 60-80s bpm overnight Diet: HH/CC Ppx: SCDs Dispo: patient appropriate for discharge, pending placement at [facility] which likely will not happen saturday at least. Family interested in rehab services if possible at [facility].
[2018-08-25 05:50] LABS: Anion Gap 13 mmol/L (10-20); BUN (Urea Nitrogen) 24 mg/dL (9.8-20.1); Calc. Creatinine Clearance 54 mL/min (70-130); Calcium 8.9 mg/dL (7.8-10.44); Carbon Dioxide 24 mmol/L (23-31); Chloride 110 mmol/L (98-107); Estimated GFR-MDRD 42; Glucose 87 mg/dL (83-110); Potassium 3.6 mmol/L (3.5-5.1); Sodium 143 mmol/L (136-145)
[2018-08-25] MEDS: Cefdinir 300 MG CAP PO SCH ×2 (08:11→20:53)
[2018-08-25] MEDS: Aspirin 81 mg Enteric Coated Tablet PO SCH (08:11)
[2018-08-25] MEDS: Amlodipine 5 MG TAB PO SCH (08:11)
[2018-08-25] MEDS: Losartan 25 MG TAB PO SCH (08:11)
--- NOTE | 2018-08-25 09:08 | HP ---
ADDENDUM: Please see the notes in the history and physical from Dr. Balderrama and also progress note from Dr. Balderrama, for which I agree. The patient was seen, evaluated, and discussed with the residents by the bedside. HISTORY OF PRESENT ILLNESS: This is an 83-year-old female, who sounds like she has pretty advanced dementia and atrial fibrillation, who is being brought in by family and just saying decreased p.o. intake, feeling weaker, nor she has had activities of daily living at home and felt like she needs long-term placement and was found to have a urinary tract infection and is currently being given antibiotics for that. ALLERGIES: EXTENSIVE ALLERGY LIST, PER DR. BALDERRAMA'S HISTORY AND PHYSICAL, FOR WHICH I AGREE. PAST MEDICAL HISTORY: Per Dr. Balderrama's history and physical, for which I agree. PAST SURGICAL HISTORY: Per Dr. Balderrama's history and physical, for which I agree. FAMILY HISTORY: Per Dr. Balderrama's history and physical, for which I agree. SOCIAL HISTORY: Per Dr. Balderrama's history and physical, for which I agree. MEDICATIONS AT HOME: Per Dr. Balderrama's history and physical, for which I agree. REVIEW OF SYSTEMS: Per Dr. Balderrama's history and physical, for which I agree. PHYSICAL EXAMINATION: GENERAL: Mildly depressed, flatten affect. No apparent distress. No respiratory distress. Overweight. Alert to name only. Knows there is no family in the room. VITAL SIGNS: Stable. HEENT: Conjunctivae not particularly pale. Sclerae anicteric. Moist mucosa. NECK: No lymphadenopathy or thyromegaly. CHEST: Clear. HEART: Regular rate and rhythm. NEUROLOGIC: Fine. No major abnormalities. LABORATORY DATA: Initial lab workup, white count fine and hemoglobin at 12.9. Urinalysis did look dirty. Initial chemistries, potassium is a little bit low at 3.3, sugar was just slightly elevated. Creatinine that was elevated at 1.89 and it seems to be above what we think her baselines is. Troponin is a little bit elevated, but unclear of the significance. Thyroid is okay. ASSESSMENT AND PLAN: 1. Urinary tract infection causing worsening activity of daily living and worsening weakness. 2. Dementia. 3. Diabetes history. PLAN: Continuing antibiotics, waiting on microbiology. Then, we will probably switch over to p.o. antibiotics. We will get Physical Therapy involved. We will start working on discharge planning. It sounds like they are wanting to get [place] a [place] [facility] because of the weekend, that probably will not have until Saturday. Continue same blood pressure pills. Continue the same Alzheimer pills and IV fluids and antibiotics. Job ID: [id number]
--- NOTE | 2018-08-25 11:21 | PRG ---
DATE OF SERVICE: 08/24/2018 ADDENDUM: Please see the progress note from Dr. Anglin, for which I agree. The patient was seen, evaluated, discussed, and examined with the residents by bedside. This is an 83-year-old here for decreased appetite and general diminish in overall functioning and was found to have UTI and initially some renal insufficiency, which has improved with some fluids. Now just on p.o. Omnicef and does seem to be improving, very deconditioned when she was walking yesterday sounds like her blood pressure had increased and she almost passed out and was feeling better and so was taken back to the room, but sounds like major deconditioning. Really nothing change on exam. At this point in time, we are going to try to get her in a longterm facility for a more extensive rehab and then eventual long-term place in a senior living. This sounds like family's plan for and seems appropriate and necessary. Job ID: [id number]
[2018-08-25] MEDS: Donepezil HCl 10 MG TAB PO SCH (20:53)
[2018-08-26 05:21] LABS: #Eosinphils 0.2 thou/uL (0.0-0.7); #Lymphocytes 1.4 thou/uL (1.20-3.40); #Monocytes 0.3 thou/uL (0.11-0.59); #Neutrophils 3.4 thou/uL (1.40-6.50); %Basophils 0.5 % (0.0-1.0); %Eosinophils 4.3 % (0.0-10.0); %Lymphocytes 26.3 % (21.0-51.0); %Monocytes 5.8 % (0.0-10.0); %Neutrophils 63.1 % (42.0-75.0); Mean Corpuscular HGB CONC 31.4 g/dL (32.0-36.0); Mean Corpuscular Hemoglobin 31.2 pg (27.0-31.0); Mean Corpuscular Volume 99.3 fL (78.0-98.0); Mean Platelet Volume 8.5 fL (7.4-10.4); Platelet Count 157 thou/uL (130-400); RBC Distribution Width 13.7 % (11.5-14.5); Red Blood Cell (RBC) Count 3.54 mill/uL (4.20-5.40); White Blood Cell (WBC) Count 5.4 thou/uL (4.8-10.8)
[2018-08-26 05:35] LABS: Anion Gap 9 mmol/L (10-20); BUN (Urea Nitrogen) 21 mg/dL (9.8-20.1); Calc. Creatinine Clearance 61 mL/min (70-130); Calcium 8.8 mg/dL (7.8-10.44); Carbon Dioxide 31 mmol/L (23-31); Chloride 108 mmol/L (98-107); Estimated GFR-MDRD 49; Glucose 93 mg/dL (83-110); Potassium 3.2 mmol/L (3.5-5.1); Sodium 145 mmol/L (136-145)
--- NOTE | 2018-08-26 06:36 | PDOC.FM ---
- Subjective Subjective: Patient reports she is sleepy. Daughter reports that the patient slept well overnight. OT came by and saw her yesterday. Daughter reports PT did not do therapy because of a concern with her blood pressure. - Objective Vital Signs & Weight: Vital Signs (12 hours) Temp Pulse Resp BP Pulse Ox 08/26/18 04:56 98.4 F 60 14 144/67 H 95 08/25/18 23:21 98.0 F 72 16 141/66 H 96 08/25/18 19:50 97.2 F L 84 16 144/79 H 93 L Weight Admit Weight 91.881 kg Weight 94.529 kg I&O: 08/24/18 08/25/18 08/26/18 06:59 06:59 06:59 Intake Total 1150 970 Output Total 300 1200 Balance 850 -230 Result Diagrams: 08/26/18 04:56 08/26/18 04:56 Phys Exam - Physical Examination Constitutional: NAD HEENT: PERRLA, moist MMs Neck: no nodes, supple Respiratory: no wheezing, no rales, no rhonchi somewhat diminished breath sounds at bases, mild crackles at bases 3/6 systolic murmur, regularly irregular rhythm Gastrointestinal: soft, non-tender, no distention, positive bowel sounds Musculoskeletal: pulses present trace pitting edema bilat, good cap refill <2 sec Neurological: non-focal, moves all 4 limbs Deviation from normal: flat affect, tired appearing Skin: no rash, normal turgor Dx/Plan (1) UTI (urinary tract infection) Status: Acute (2) RANCHO (acute kidney injury) Code(s): N17.9 - ACUTE KIDNEY FAILURE, UNSPECIFIED Status: Acute (3) CHF (congestive heart failure) Code(s): I50.9 - HEART FAILURE, UNSPECIFIED Status: Chronic (4) CKD (chronic kidney disease) stage 3, GFR 30-59 ml/min Code(s): N18.3 - CHRONIC KIDNEY DISEASE, STAGE 3 (MODERATE) Status: Chronic (5) Diabetes Code(s): E11.9 - TYPE 2 DIABETES MELLITUS WITHOUT COMPLICATIONS Status: Chronic (6) HTN (hypertension) Code(s): I10 - ESSENTIAL (PRIMARY) HYPERTENSION Status: Chronic (7) Alzheimer's dementia Code(s): G30.9 - ALZHEIMER'S DISEASE, UNSPECIFIED Status: Chronic (8) Atrial fibrillation Code(s): I48.91 - UNSPECIFIED ATRIAL FIBRILLATION Status: Chronic - Plan Plan: 83 yo F with PMH HTN, CHF, DM2, CKD3, alzheimers admitted for uncomplicated UTI. UTI, uncomplicated - UA with large leuk esterase, neg nitrites, high WBC, 2+ bacteria - VSS - Rocephin given in ED (08/22), continue omnicef (08/23), discontinue after today ( day 5) Mild hypokalemia -Will replace PO potassium this AM RANCHO on CKD3, resolved - Cr 1.89, GFR 26 (baseline 1.56/32), on admission - 2/2 volume depletion, decreased PO intake Elevated troponin, resolved - most likely 2/2 demand - 0.033 max, trended down Physical deconditioning - consult PT/OT HTN - BP stable - continue home amlodipine, losartan, aspirin (discontinued crestor) Alzheimer Dementia - continue home namenda, quetiapine (d/c donepezil) - mental status at baseline per family DM2 - pioglitazone is only home med. Did not continue with pt hx CHF. - A1c 5.5, will not recommend any treatment at discharge CHF - unsure of history of this. Daughter in law not aware. Not on expected CHF meds and unknown EF - lung crackles on exam, mild cardiomegaly on CXR 08/22 but no fluid overload at that time - BNP elevated Hx Atrial fib - Sees Dr. Law outpatient - Atrial fib 60-80s bpm, with episode of afib with RVR into 160s overnight Diet: HH/CC Ppx: SCDs Dispo: patient appropriate for discharge, pending placement at [facility]. Family interested in rehab services if possible at [facility]. Pt approved pending insurance authorization.
[2018-08-26] MEDS ORDERED: Potassium Chloride 20 MEQ TAB PO SCH (06:45)
--- NOTE | 2018-08-26 07:59 | PRG ---
DATE OF SERVICE: ADDENDUM: Addendum to the note of Dr. Holli Ferreira. Ms. Sorensen is an 83-year-old white lady with advanced dementia. She was admitted with progressive weakness and poor p.o. intake. I also note she is taking many medications and I have asked our residents to look these over and see if we can discontinue some of these. In the event, her lab this morning showed a white count of 7900, hemoglobin 12.9 with hematocrit of 41.1. Her chemistries: Sodium was 143, potassium 3.6, chloride was 110, bicarb was 24, BUN was 24, creatinine was 1.22. She also was noted to have abnormal urinalysis. She is really unable to describe any urinary symptoms too so we are going ahead and treating her presumptively. In the event clinically this morning, she seems to be improved. Daughter was in the room with her and we discussed the case with her. She will likely be ready for placement in a day or two. Job ID: [id number]
[2018-08-26] MEDS: Amlodipine 5 MG TAB PO SCH (08:53)
[2018-08-26] MEDS: Cefdinir 300 MG CAP PO SCH ×2 (08:54→20:23)
[2018-08-26] MEDS: Losartan 25 MG TAB PO SCH (08:54)
[2018-08-26] MEDS: Aspirin 81 mg Enteric Coated Tablet PO SCH (08:54)
--- NOTE | 2018-08-26 12:14 | PRG ---
DATE OF SERVICE: 08/26/2018 SUBJECTIVE: Ms. Sorensen is resting quietly in bed, in no distress. We are still awaiting placement to [facility]. We are adding additional medication for her atrial fib with RVR. Clinically, she is stable and awaits placement. Job ID: [id number]
[2018-08-26] MEDS: Donepezil HCl 10 MG TAB PO SCH (20:23)
--- NOTE | 2018-08-27 06:01 | PDOC.FM ---
- Subjective Subjective: Patient reports she is feeling well this morning, no pain. - Objective Vital Signs & Weight: Vital Signs (12 hours) Temp Pulse Resp BP Pulse Ox 08/27/18 04:06 97.4 F L 45 L 17 182/77 H 95 08/26/18 23:36 97.5 F L 65 16 144/66 H 95 08/26/18 18:29 98.6 F 63 20 137/65 95 Weight Admit Weight 91.881 kg Weight 94.529 kg I&O: 08/25/18 08/26/18 08/27/18 06:59 06:59 06:59 Intake Total 1150 970 900 Output Total 300 1200 1200 Balance 850 -230 -300 Result Diagrams: 08/26/18 04:56 08/26/18 04:56 Phys Exam - Physical Examination Constitutional: NAD HEENT: moist MMs crackles on bilat lower lobes Cardiovascular: RRR bradycardic overnight Gastrointestinal: soft, non-tender, no distention, positive bowel sounds Musculoskeletal: no edema, pulses present Psychiatric: normal affect Skin: no rash, cap refill <2 seconds Dx/Plan (1) UTI (urinary tract infection) Status: Acute (2) RANCHO (acute kidney injury) Code(s): N17.9 - ACUTE KIDNEY FAILURE, UNSPECIFIED Status: Acute (3) CHF (congestive heart failure) Code(s): I50.9 - HEART FAILURE, UNSPECIFIED Status: Chronic (4) CKD (chronic kidney disease) stage 3, GFR 30-59 ml/min Code(s): N18.3 - CHRONIC KIDNEY DISEASE, STAGE 3 (MODERATE) Status: Chronic (5) Diabetes Code(s): E11.9 - TYPE 2 DIABETES MELLITUS WITHOUT COMPLICATIONS Status: Chronic (6) HTN (hypertension) Code(s): I10 - ESSENTIAL (PRIMARY) HYPERTENSION Status: Chronic (7) Alzheimer's dementia Code(s): G30.9 - ALZHEIMER'S DISEASE, UNSPECIFIED Status: Chronic (8) Atrial fibrillation Code(s): I48.91 - UNSPECIFIED ATRIAL FIBRILLATION Status: Chronic - Plan Plan: 83 yo F with PMH HTN, CHF, DM2, CKD3, alzheimers admitted for uncomplicated UTI. UTI, uncomplicated - UA with large leuk esterase, neg nitrites, high WBC, 2+ bacteria - VSS - Rocephin given in ED (08/22), continue omnicef (08/23), discontinue after today ( day 5) Mild hypokalemia -monitor and replace as necessary RANCHO on CKD3, resolved - Cr 1.89, GFR 26 (baseline 1.56/32), on admission - 2/2 volume depletion, decreased PO intake Elevated troponin, resolved - most likely 2/2 demand - 0.033 max, trended down Physical deconditioning - consult PT/OT HTN - BP elevated - continue home amlodipine, losartan, aspirin (discontinued crestor) Alzheimer Dementia - continue home namenda, quetiapine (d/c donepezil) - mental status at baseline per family DM2 - pioglitazone is only home med. Did not continue with pt hx CHF. - A1c 5.5, will not recommend any treatment at discharge CHF - Daughter reports she has CHF - lung crackles on exam, mild cardiomegaly on CXR 08/22 but no fluid overload at that time - BNP elevated - 1x dose PO lasix Hx Atrial fib - Sees Dr. Law outpatient - Atrial fib 60-80s bpm, with episode of afib with RVR into 160s 08/25 - 024 pt episode bradying down to the 30 and 40's 08/26. industrial cleaning technician notified that there was a 2.8 second pause - discontinue metoprolol Diet: HH/CC Ppx: SCDs Dispo: patient appropriate for discharge, pending placement at [facility]. Family interested in rehab services if possible at [facility]. Pt approved pending insurance authorization.
[2018-08-27] MEDS: Aspirin 81 mg Enteric Coated Tablet PO SCH (08:38)
[2018-08-27] MEDS ORDERED: Furosemide 20 MG TAB PO SCH (09:00)
[2018-08-27] MEDS: Losartan 25 MG TAB PO SCH (09:08)
[2018-08-27] MEDS: Amlodipine 5 MG TAB PO SCH (09:08)
--- NOTE | 2018-08-27 11:50 | PRG ---
DATE OF SERVICE: 08/27/2018 SUBJECTIVE: During the night, Ms. Sorensen's pulse rate dropped into the low 30s. This is after we had started a very low dose of metoprolol for her atrial fib with RVR. This has since been discontinued. 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 We will ask Cardiology for an opinion and proceed. Job ID: [id number]
[2018-08-27 14:42] VITALS: BMI 35.9
[2018-08-27] MEDS: Donepezil HCl 10 MG TAB PO SCH (20:28)
--- NOTE | 2018-08-27 20:46 | CON ---
DATE OF CONSULTATION: 08/27/2018 PRIMARY IMAGING ASSISTANT: Jeanmarie Law MD REASON FOR CONSULTATION: Bradycardia. HISTORY OF PRESENT ILLNESS: Ms. Sorensen is a pleasant 83-year-old white female, who is demented, who comes to the hospital for change in her mental status. She was found to have a urinary tract infection and has been getting antibiotics for that. She was admitted to telemetry floor as she has a history of chronic atrial fibrillation. During telemetry monitoring, she has as a small quick bouts of rapid ventricular response, heart rate going up to the 170s. This was minimally symptomatic and then it just converted back down into rate controlled atrial fibrillation, where she is at, at this time. Over the last few days, they have marked several episodes on telemetry where she has had pauses, the longest one was 3.1 seconds, most of them are in the 1.5 to 2.5 range. She has been asymptomatic. No syncope or presyncope. On my evaluation, both sons are in her room and tell me they would like to be as conservative as they can be. I told them that I did not think she was a candidate for any pacemaker at this time and they responded I responded that I did know that; however, I do not think she needs pacemaker at this time. Otherwise, Ms. Sorensen has no complaints for me. PAST MEDICAL HISTORY: 1. Type 2 diabetes. 2. Hypertension. 3. CHF. 4. Chronic kidney disease. 5. Dementia. PAST SURGICAL HISTORY: 1. Hysterectomy. 2. Right shoulder surgery. 3. Bladder surgery. 4. . FAMILY HISTORY: Noncontributory. SOCIAL HISTORY: No alcohol, tobacco, or drugs. REVIEW OF SYSTEMS: A 12-point review of systems is noncontributory as the patient is unable to give any good history. PHYSICAL EXAMINATION: VITAL SIGNS: Temperature 98.5, pulse 60, respiratory rate 16, saturating 94% on room air, and blood pressure 138/63. GENERAL: Awake, alert, and oriented to person only, in no distress. HEENT: Normocephalic, atraumatic. NECK: Supple. LUNGS: Clear. CARDIOVASCULAR: Irregularly irregular. Heart rate in the 60s. ABDOMEN: Soft. Positive bowel sounds. EXTREMITIES: No edema. SKIN: Warm and dry. LABORATORY DATA: Laboratory work was reviewed. CBC was reviewed. Chemistries were reviewed. The last basic metabolic was on 08/26/2018 and her potassium was 3.2. UA was reviewed. ASSESSMENT AND PLAN: 1. Urinary tract infection. 2. Advanced dementia. 3. Chronic atrial fibrillation. PLAN: 1. No indication for pacemaker placement at this time given that the pauses of less than 5 seconds. 2. Brief episodes of RVR urinary tract infection. 3. 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 The family is not interested in any pacemaker at this time. However, if it comes to the point, then may consider it. 4. Would continue current medications. 5. Would try to keep the potassium above 3.5, ideally above 4. Replace as appropriate. 6. Would stay away from any AV emy blocking agents for now. 7. Further recommendations per Dr. Law who is primary category development manager, tomorrow morning. Job ID: [id number]
--- NOTE | 2018-08-28 06:20 | PDOC.FM ---
- Subjective Subjective: No complaints this morning. Denies Chest pain/ SOB. Reports she is eating and drinking well. - Objective Vital Signs & Weight: Vital Signs (12 hours) Temp Pulse Resp BP Pulse Ox 08/28/18 03:51 97.3 F L 63 16 155/72 H 96 08/28/18 00:00 97.6 F 71 16 135/67 97 08/27/18 20:00 98.0 F 67 16 145/67 H 94 L Weight Admit Weight 91.881 kg Weight 94.801 kg I&O: 08/26/18 08/27/18 08/28/18 06:59 06:59 06:59 Intake Total 970 1000 720 Output Total 1200 1200 Balance -230 -200 720 Result Diagrams: 08/26/18 04:56 08/28/18 07:00 Phys Exam - Physical Examination HEENT: moist MMs Respiratory: no wheezing expiratory crackles in bases bilat Cardiovascular: RRR 3/6 systolic murmur Gastrointestinal: soft, non-tender, no distention Musculoskeletal: no edema, pulses present Neurological: non-focal, moves all 4 limbs Psychiatric: normal affect Skin: normal turgor, cap refill <2 seconds Dx/Plan (1) UTI (urinary tract infection) Status: Acute (2) RANCHO (acute kidney injury) Code(s): N17.9 - ACUTE KIDNEY FAILURE, UNSPECIFIED Status: Acute (3) CHF (congestive heart failure) Code(s): I50.9 - HEART FAILURE, UNSPECIFIED Status: Chronic (4) CKD (chronic kidney disease) stage 3, GFR 30-59 ml/min Code(s): N18.3 - CHRONIC KIDNEY DISEASE, STAGE 3 (MODERATE) Status: Chronic (5) Diabetes Code(s): E11.9 - TYPE 2 DIABETES MELLITUS WITHOUT COMPLICATIONS Status: Chronic (6) HTN (hypertension) Code(s): I10 - ESSENTIAL (PRIMARY) HYPERTENSION Status: Chronic (7) Alzheimer's dementia Code(s): G30.9 - ALZHEIMER'S DISEASE, UNSPECIFIED Status: Chronic (8) Atrial fibrillation Code(s): I48.91 - UNSPECIFIED ATRIAL FIBRILLATION Status: Chronic - Plan Plan: 83 yo F with PMH HTN, CHF, DM2, CKD3, alzheimers admitted for uncomplicated UTI. Hx Atrial fib - Sees Dr. Law outpatient - Atrial fib 60-80s bpm, with episode of afib with RVR into 160s 08/25 - 0240 pt episode bradying down to the 30 and 40's 08/26. endoscopy technician notified that there was a 2.8 second pause - cardiology consulted, Dr. Sin, appreciate recommendations -No pacemaker now, though she may need one in the future -K ideally >4.0 UTI, uncomplicated, resolved - UA with large leuk esterase, neg nitrites, high WBC, 2+ bacteria - VSS - Omnicef x 5 days, completed course Mild hypokalemia -monitor and replace as necessary RANCHO on CKD3, resolved - Cr 1.89, GFR 26 (baseline 1.56/32), on admission - 2/2 volume depletion, decreased PO intake Elevated troponin, resolved - most likely 2/2 demand - 0.033 max, trended down Physical deconditioning - consult PT/OT HTN - BP elevated - continue home amlodipine, losartan, aspirin (discontinued crestor) Alzheimer Dementia - continue home namenda, quetiapine (d/c donepezil) - mental status at baseline per family DM2 - pioglitazone is only home med. Did not continue with pt hx CHF. - A1c 5.5, will not recommend any treatment at discharge CHF - Daughter reports she has CHF - lung crackles on exam, mild cardiomegaly on CXR 08/22 but no fluid overload at that time - BNP elevated Diet: HH/CC Ppx: SCDs Dispo: patient appropriate for discharge, [facility] denied for [facility]. Pending placement
[2018-08-28 07:38] LABS: Anion Gap 13 mmol/L (10-20); BUN (Urea Nitrogen) 20 mg/dL (9.8-20.1); Calc. Creatinine Clearance 59 mL/min (70-130); Calcium 8.8 mg/dL (7.8-10.44); Carbon Dioxide 28 mmol/L (23-31); Chloride 106 mmol/L (98-107); Estimated GFR-MDRD 47; Glucose 91 mg/dL (83-110); Potassium 3.6 mmol/L (3.5-5.1); Sodium 143 mmol/L (136-145)
[2018-08-28] MEDS: Aspirin 81 mg Enteric Coated Tablet PO SCH (08:32)
[2018-08-28] MEDS: Losartan 25 MG TAB PO SCH (08:32)
[2018-08-28 12:18] VITALS: TEMP 97.7
--- NOTE | 2018-08-28 12:57 | PRG ---
DATE OF SERVICE: 08/28/2018 She was seen in consultation by Dr. Sin of the Cardiology Service and we certainly appreciated his input. He feels at this time the patient does not need a pacemaker and in the event, the family is against this as well. He feels that one may become necessary in the future if the decision that can be made at that point. Otherwise, we are waiting placement as the patient is otherwise ready for discharge. Job ID: [id number]
[2018-08-28 15:06] VITALS: BP 146/62
[2018-08-28] MEDS ORDERED: Amlodipine 5 MG TAB PO SCH (21:00)
--- NOTE | 2018-08-29 06:08 | DIS ---
DATE OF ADMISSION: 08/22/2018 DATE OF DISCHARGE: 08/28/2018 RESIDENT: Holli Ferreira MD. CONSULT: Cardiology, Dr. Sin, 08/27/2018. PROCEDURES: Chest x-ray on 08/22/2018, no acute cardiopulmonary process. Mild cardiomegaly. PRIMARY DIAGNOSES: 1. Chronic atrial fibrillation. 2. Urinary tract infection. 3. Advanced Alzheimer dementia. SECONDARY DIAGNOSES: 1. Mild hypokalemia. 2. Acute kidney injury on chronic kidney disease 3, resolved. 3. Elevated troponin secondary to demand ischemia. 4. Physical deconditioning. 5. Hypertension. 6. Diabetes mellitus, type 2. 7. Congestive heart failure. DISCHARGE MEDICATIONS: 1. Quetiapine 50 mg oral at bedtime. 2. Memantine (Namenda) 28 mg p.o. at bedtime. 3. Losartan 100 mg p.o. daily. 4. Saxagliptin (Onglyza) 2.5 mg p.o. daily. 5. Farxiga 5 mg p.o. every morning. 6. Aspirin 81 mg p.o. daily. 7. Vitamin D3, 5000 units oral daily. Discontinued medications: 1. Donepezil 10 mg p.o. at bedtime. 2. Pioglitazone 15 mg p.o. daily. 3. Crestor 10 mg p.o. at bedtime. HOSPITAL COURSE: This is an 83-year-old female with past medical history significant for advanced Alzheimer dementia and atrial fibrillation, who was brought in by family due to decreased p.o. intake and weakness over the last week. History was obtained from children, who were at the bedside. The patient currently lives at home with her son, who reports she has gotten progressively weaker, more fatigued, and had decreased p.o. intake since beginning of the week. Son reports that she has had minimal amounts during the last week. Daughter endorsed fatigue and states the patient was sleeping everyday. The patient typically ambulates with a walker at home. She has also had a few episodes of incontinence. She was diagnosed with uncomplicated UTI. The patient was given 1 g of Rocephin, 1 L of normal saline in the ED and then was treated with 5 days of Omnicef. The patient was also found to have an RANCHO on CKD, which improved with volume resuscitation. The patient also had elevated troponin secondary to demand ischemia that was stable. The patient has physical deconditioning. The patient was seen by PT and OT, who recommended further physical therapy. Some medications were discontinued during the patient's stay due to her advanced dementia. The patient's pioglitazone was stopped (A1c 5.5) as she has heart disease. The patient's statin was stopped as well as the patient's second alzheimer dementia medicine donepezil. Her other medications were continued. During her stay, the patient developed intermittent episodes of atrial fibrillation with RVR as well as bradycardia down to 30 with 2 to [address] Sin of Cardiology was consulted and came and saw her. No pacemaker is recommended at this time and no medications were changed. The patient will follow up with Dr. Law as outpatient. The patient was denied for placement at [facility], so the family opted to do private pay and the patient was transferred to [facility]. DISPOSITION: Stable. DISCHARGE INSTRUCTIONS: 1. Location: [facility]. 2. Diet: Heart healthy, consistent carb. 3. Activity: As tolerated. 4. Follow up: Follow up with PCP, Dr. Metzger in 1 week as well as with Dr. Law in 3 to 4 weeks. Job ID: [id number] [facility]
--- NOTE | 2018-08-30 09:16 | EKG ---
Test Reason : Blood Pressure : / mmHG Vent. Rate : 077 BPM Atrial Rate : 086 BPM P-R Int : 000 ms QRS Dur : 086 ms QT Int : 424 ms P-R-T Axes : 000 014 027 degrees QTc Int : 479 ms Atrial fibrillation Abnormal ECG Confirmed by FISH NORIEGA ([id number]), graphic editor DENISHA NESS ([id number]) on 08/30/2018 9:16:23 AM Referred By: Confirmed By:FISH NORIEGA
== END 2018-08-28 16:25 ==
LOC: ERS 13:10 → 2SW 18:14
PROVIDERS: ADMIT Family Medicine; ATTEND Family Medicine
DX: I48.2 Chronic atrial fibrillation (principal); N39.0 Urinary tract infection, site not specified; G30.9 Alzheimer's disease, unspecified; F02.80 Dementia in other diseases classified elsewhere, unspecified severity, without behavioral disturbance, psychotic disturbance, mood disturbance, and anxiety; E87.6 Hypokalemia; I13.0 Hypertensive heart and chronic kidney disease with heart failure and stage 1 through stage 4 chronic kidney disease, or unspecified chronic kidney disease; E11.22 Type 2 diabetes mellitus with diabetic chronic kidney disease; N18.3 Chronic kidney disease, stage 3 (moderate); I50.9 Heart failure, unspecified; N17.9 Acute kidney failure, unspecified; I24.8 Other forms of acute ischemic heart disease; B96.20 Unspecified Escherichia coli [E. coli] as the cause of diseases classified elsewhere; B96.4 Proteus (mirabilis) (morganii) as the cause of diseases classified elsewhere; B95.4 Other streptococcus as the cause of diseases classified elsewhere; Z79.84 Long term (current) use of oral hypoglycemic drugs; Z79.899 Other long term (current) drug therapy; Z88.0 Allergy status to penicillin; Z88.1 Allergy status to other antibiotic agents; Z88.2 Allergy status to sulfonamides; Z88.8 Allergy status to other drugs, medicaments and biological substances; Z91.011 Allergy to milk products
CPT/HCPCS: 71045; 80048 ×5; 82140; 82553; 82962 ×7; 83036; 83690; 83880; 84484 ×2; 85025 ×4; 87077; 87086; 87186; 90662; 93005; 96361 ×3; 96365; 97110; 97116; 97139 ×4; 97530 ×2; 97535; 99285; G0008; G0378 ×3; 36415; 36416; 80053; 81003; 81015; 84443; 90471; J0696

== ENCOUNTER 2018-09-15 10:08 | Emergency (ER) | payer MEDICARE ==
[2018-09-15 10:50] LABS: #Basophils 0.1 thou/uL (0.0-0.2); #Eosinphils 0.2 thou/uL (0.0-0.7); #Lymphocytes 1.5 thou/uL (1.20-3.40); #Monocytes 0.4 thou/uL (0.11-0.59); %Basophils 0.7 % (0.0-1.0); %Eosinophils 2.1 % (0.0-10.0); %Lymphocytes 18.7 % (21.0-51.0); %Monocytes 5.4 % (0.0-10.0); %Neutrophils 73.1 % (42.0-75.0); Hemoglobin 11.7 g/dL (12.0-16.0); Mean Corpuscular HGB CONC 32.6 g/dL (32.0-36.0); Mean Corpuscular Hemoglobin 31.8 pg (27.0-31.0); Mean Corpuscular Volume 97.5 fL (78.0-98.0); Mean Platelet Volume 8.6 fL (7.4-10.4); Platelet Count 314 thou/uL (130-400); RBC Distribution Width 13.9 % (11.5-14.5); Red Blood Cell (RBC) Count 3.69 mill/uL (4.20-5.40); White Blood Cell (WBC) Count 8.1 thou/uL (4.8-10.8)
--- NOTE | 2018-09-15 11:05 | RAD ---
PORTABLE CHEST 1 VIEW: DATE: 09/15/18 Time: 1042 hours HISTORY: Chest pain, atrial fibrillation. FINDINGS/IMPRESSION: Comparison made with exam of 08/22/18. The heart is enlarged. No focal areas of consolidation, pneumothoraces, rk pulmonary edema, or lar ge effusions are seen. Postop changes of left rotator cuff repair are again seen. POS: TPC
[2018-09-15 11:56] LABS: ALT (SGPT) 9 U/L (8-55); AST (SGOT) 8 U/L (5-34); Albumin 3.7 g/dL (3.4-4.8); Alkaline Phosphatase 115 U/L (40-150); Anion Gap 19 mmol/L (10-20); BUN (Urea Nitrogen) 34 mg/dL (9.8-20.1); CK (CPK) 29 U/L (29-168); Calc. Creatinine Clearance 0 mL/min (70-130); Calcium 9.8 mg/dL (7.8-10.44); Carbon Dioxide 31 mmol/L (23-31); Chloride 100 mmol/L (98-107); Estimated GFR-MDRD 22; Globulin 3.3 g/dL (2.4-3.5); Glucose 104 mg/dL (83-110); Potassium 3.5 mmol/L (3.5-5.1); Sodium 146 mmol/L (136-145)
[2018-09-15 14:45] LABS: Troponin I Less than 0.010 ng/mL (< 0.028)
== END 2018-09-15 16:23 ==
LOC: ERS 10:08
DX: R07.89 Other chest pain (principal); G30.9 Alzheimer's disease, unspecified; F02.80 Dementia in other diseases classified elsewhere, unspecified severity, without behavioral disturbance, psychotic disturbance, mood disturbance, and anxiety; I48.91 Unspecified atrial fibrillation; E11.9 Type 2 diabetes mellitus without complications; I10 Essential (primary) hypertension; Z79.899 Other long term (current) drug therapy; Z79.82 Long term (current) use of aspirin
CPT/HCPCS: 36415; 71045; 80053; 82550; 84484; 85025; 93005

== ENCOUNTER 2019-02-11 18:27 | Inpatient (IN) | payer MEDICARE, MEDICAID ==
--- NOTE | 2019-02-11 19:52 | CT ---
CT BRAIN NONCONTRAST: DATE: 02/11/2019 HISTORY: 83 year old female with altered mental status. FINDINGS: There is no evidence of acute extra-axial hemorrhage. There is no midline shift or any other mass eff ect. There is no extra-axial fluid collection. There is no evidence of obstructive hydrocephalus. Calvarium is intact. There is diffuse brain parenchymal volume loss. There are low attenuation areas in the white matter. These are nonspecific, but in a patient of this age, they are probably chronic ischemic white matter changes due to microvascular atherosclerosis. There is a thin, linear 1 x 0.3 c m intra-axial hyperdense lesion in the left parietal tabor radiata. IMPRESSION: 1) No mass effect. 2) short linear parenchymal hyperdensity in the left deep cerebral white matter. Exact etiology uncer tain. The appearance is unusual for both acute hemorrhage and calcification. Recommend further evaluation with MRI of the brain with and without contrast. 3) involutional changes and chronic ischemic white matter changes.
--- NOTE | 2019-02-11 19:56 | RAD ---
CHEST ONE VIEW: 02/11/19 HISTORY: Dizziness. Dyspnea. COMPARISON: 09/15/18 FINDINGS: Cardiac silhouette is magnified by projection and enlarged. Pulmonary vasculature is unremarkable. Me diastinum is midline. No confluent air space consolidation or evidence of pneumothorax. Postoperative changes left shoulder. IMPRESSION: No active cardiopulmonary abnormalities are demonstrated. POS: BST
[2019-02-11 19:57] LABS: #Eosinphils 0.1 thou/uL (0.0-0.7); #Lymphocytes 1.3 thou/uL (1.20-3.40); #Monocytes 0.6 thou/uL (0.11-0.59); #Neutrophils 8.9 thou/uL (1.40-6.50); %Basophils 0.1 % (0.0-1.0); %Eosinophils 0.6 % (0.0-10.0); %Lymphocytes 11.6 % (21.0-51.0); %Monocytes 5.4 % (0.0-10.0); %Neutrophils 82.4 % (42.0-75.0); Hemoglobin 11.9 g/dL (12.0-16.0); Mean Corpuscular HGB CONC 32.9 g/dL (32.0-36.0); Mean Corpuscular Hemoglobin 30.5 pg (27.0-31.0); Mean Corpuscular Volume 92.7 fL (78.0-98.0); Mean Platelet Volume 8.7 fL (7.4-10.4); Platelet Count 197 thou/uL (130-400); RBC Distribution Width 14.5 % (11.5-14.5); Red Blood Cell (RBC) Count 3.91 mill/uL (4.20-5.40); White Blood Cell (WBC) Count 10.8 thou/uL (4.8-10.8)
[2019-02-11 20:11] LABS: ALT (SGPT) 8 U/L (8-55); AST (SGOT) 14 U/L (5-34); Albumin 3.8 g/dL (3.4-4.8); Alkaline Phosphatase 74 U/L (40-150); Anion Gap 19 mmol/L (10-20); BUN (Urea Nitrogen) 39 mg/dL (9.8-20.1); Bilirubin, Total 0.9 mg/dL (0.2-1.2); Calc. Creatinine Clearance 0 mL/min (70-130); Calcium 9.4 mg/dL (7.8-10.44); Carbon Dioxide 26 mmol/L (23-31); Chloride 103 mmol/L (98-107); Estimated GFR-MDRD 11; Globulin 2.8 g/dL (2.4-3.5); Glucose 126 mg/dL (83-110); Potassium 3.3 mmol/L (3.5-5.1); Protein, Total 6.6 g/dL (6.0-8.3); Sodium 145 mmol/L (136-145)
[2019-02-11 20:31] LABS: Bacteria/HPF None Seen HPF (None Seen); Bilirubin Negative (Negative); Blood, Urine 1+ (Negative); Clarity Clear (Clear); Glucose, Urine (Dipstick) 150 mg/dL (Negative); Leukocyte Negative Leu/uL (Negative); Nitrite Negative (Negative); Protein, Urine (Dipstick) 70 mg/dL (Neg-Trace); RBC/HPF 0-3 HPF (0-3); Squamous Epithelial 0-3 HPF (0-3); Urobilinogen Normal mg/dL (Less than 2)
--- NOTE | 2019-02-11 22:16 | CT ---
CT ABDOMEN NONCONTRAST CT PELVIS NONCONTRAST: (Urolithiasis protocol) DATE: 02/11/2019 HISTORY: 83-year-old female with hematuria, acute renal failure, and abdominal pain. COMPARISON: 11/04/2006 TECHNIQUE: IV injection of iodinated contrast media: None Oral contrast media: None FINDINGS: Other than for urolithiasis, the lack of IV and oral contrast limits the evaluation. The previously demonstrated 8 x 6 cm exophytic right renal cyst has grown to current dimensions of 8. 5 x 8.5 x 8 cm. Several other much smaller bilateral renal cysts have also grown since the previous CT. No hydronephr osis. There has been atrophy of bilateral renal parenchyma since 2006. No renal, ureteral, or bladder calculus. Normal, thin reynoso of urinary bladder. Low position of bladder base and pelvic cavi ty. Absent uterus. Numerous diverticula at the descending and sigmoid colon without diverticulitis. No small bowel dilation. Atherosclerotic calcification without aneurysm of abdominal aorta. Within th e limitations of noncontrast scan, no major pathology identified involving adrenals, pancreas, liver, or spleen. No ascites or pneumoperitoneum. IMPRESSION: 1) interval mild atrophy of bilateral kidneys. 2) interval growth in bilateral renal multiple cysts. The largest one is on the right measuring 8.5 c m. 3) no urolithiasis or obstructive uropathy. 4) status post hysterectomy. Pelvic relaxation.
[2019-02-12] MEDS ORDERED: Sodium Chloride 0.9% 1,000 ML IV SCH (01:12)
[2019-02-12] MEDS ORDERED: Dextrose 50% Abboject 50 ML SYRINGE SLOW IVP PRN (05:08)
[2019-02-12] MEDS ORDERED: Guaifenesin DM 100-10/5 ML UDCUP PO PRN (05:08)
[2019-02-12] MEDS ORDERED: HumaLOG 300 UNITS/3 ML VIAL SC PRN ×2 (05:08)
[2019-02-12] MEDS ORDERED: Dextrose 5% in Water 1,000 ML IV PRN (05:08)
[2019-02-12] MEDS ORDERED: Bisacodyl 10 MG SUPP PR PRN (05:08)
[2019-02-12] MEDS ORDERED: Senokot S 8.6-50 MG TAB PO PRN (05:08)
[2019-02-12] MEDS ORDERED: Ondansetron PF 4 MG/2 ML Vial IVP PRN (05:08)
[2019-02-12] MEDS ORDERED: Acetaminophen 325 MG TAB PO PRN (05:08)
--- NOTE | 2019-02-12 06:03 | HP ---
REASON FOR ADMISSION: Acute metabolic encephalopathy, acute kidney injury on top of chronic kidney disease, likely moderate dehydration. HISTORY OF PRESENTING ILLNESS: Please note majority of this history is obtained by talking to ER physician, intermediate records and prior medical records as the patient is not oriented. She is in deep sleep and I cannot arise her even with deep painful stimuli at present. The patient apparently was awake until late last night and she finally slept. She was transferred from [facility] around 5: 00 p.m. They found her to be very lethargic and agitated. Her blood pressure was 92/50. Her temperature was 98 degrees, pulse was 68 per minute. She has had recent urinary tract infection diagnosed on 01/22/2019, which grew e.coli sensitive to quinolone, ceftriaxone, and sulfa. She was placed on ciprofloxacin twice daily for a total of 7 days. PAST MEDICAL AND SURGICAL HISTORY: History of dementia, which appears to be fairly advanced, anxiety disorder, diabetes mellitus type 2, dyslipidemia, CKD stage 3, recent urinary tract infection, hypertension, history of heart failure, history of atrial fibrillation, right shoulder surgery, bladder surgery, , hysterectomy. CURRENT MEDICATIONS: The patient is on: 1. Norvasc 5 mg p.o. daily. 2. Aricept 5 mg at bedtime. 3. Aspirin 81 mg p.o. daily. 4. Buspirone 10 mg p.o. 3 times a day. 5. Crestor 10 mg p.o. at bedtime. 6. Farxiga 5 mg p.o. every morning. 7. Lasix 40 mg p.o. daily. 8. Losartan 100 mg p.o. daily. 9. Memantine 28 mg p.o. q.p.m. 10. Onglyza 2.5 mg p.o. q.a.m. 11. Potassium chloride 10 mEq p.o. daily. 12. Seroquel 50 mg p.o. at bedtime. 13. Vitamin D3 5000 units p.o. daily. ALLERGIES: THE PATIENT IS ALLERGIC TO MULTIPLE AGENTS INCLUDING BACITRACIN, KETOCONAZOLE, LANOLIN, NEOMYCIN, PENICILLIN, POLYMYXIN B, SULFA, MILK, AND VITAMIN C. PERSONAL HISTORY: Per prior records, the patient is a intermediate resident at [facility]. Does not abuse alcohol or drugs. FAMILY HISTORY: Father had history of cancer. Mother was on dialysis, she also had diabetes mellitus type 2. Sister has history of dementia, another sister had breast cancer. CODE STATUS: Per intermediate records, the patient is a DNR, which was started on 12/08/2018. We will try to talk to patient's son, who appears to be the primary emergency contact. Currently, no family is present at bedside, and it is around 5 in the morning, we will try to call them around 7 or 8 in the morning to ascertain code status. REVIEW OF SYSTEMS: Cannot be obtained as the patient is not oriented. PHYSICAL EXAMINATION: GENERAL: The patient is an 83-year-old female who is currently not in any acute distress and is sound asleep. VITAL SIGNS: Blood pressure 94/50, pulse 84 per minute, respiratory rate 16 per minute, saturating 96% on room air, and temperature 98 degrees Fahrenheit. NECK: Supple. No elevated JVD. HEENT: Eyes; extraocular muscles intact. Pupils reacting to light. Oral cavity, mucous membranes are dry. No exudates or congestion. CARDIOVASCULAR: S1 and S2 heard. Irregular rhythm. Murmur plus. RESPIRATORY: Air entry, 1+ bilateral. No rales or rhonchi. ABDOMEN: Soft. Bowel sounds heard. No tenderness, rigidity, or guarding. EXTREMITIES: No peripheral edema or calf tenderness. VASCULAR SYSTEM: Peripheral pulses 1+ bilateral. No ischemic ulcerations or gangrene. CENTRAL NERVOUS SYSTEM: No gross focal deficits noted. The patient is very sound asleep at present. She apparently went to bed very late. Prior to that, she was agitated and was not herself when she was sent from intermediate. In view of this, we will allow her to sleep until late this morning. No obvious focal neurologic deficit is seen. PSYCHIATRIC: Cannot be accurately assessed as the patient is not oriented. LABORATORY DATA: CT brain without contrast done showed no mass effect. There was shortly near parenchymal hyperdensity in the left deep cerebral white matter, exact etiology is unclear, with chronic white matter ischemic changes seen. CT abdomen and pelvis without contrast done shows mild atrophy of bilateral kidneys. There is interval growth in bilateral renal multiple cysts, the largest one on the right is measuring 8.5 cm. No urolithiasis or obstructive uropathy was seen. Prior hysterectomy. Chest x-ray done shows no acute cardiopulmonary abnormality. White count of 10, H and H 11 and 36, platelet count 197 with 82% neutrophils. Sodium 145, potassium 3.3, serum bicarb 26, BUN 39, creatinine 3.96, glucose 126. Troponin x1 negative. Liver enzymes within normal limits. Albumin is 3.8. UA does not show any evidence of UTI. EKG done shows atrial fibrillation at 93 beats per minute. There are frequent PVCs, also Q-wave in V2, V3. CLINICAL IMPRESSION AND PLAN: The patient will be admitted to medical floor for acute metabolic encephalopathy, acute kidney injury on top of chronic kidney disease. The plan is to gently hydrate her with lactated Ringer at 100 mL per hour for a total of 3 L. We will consult Dr. Mares, her pathology collector. The patient has a loud murmur and we will obtain an echo with 2D Doppler. The patient's medications will be renally dosed. We will continue her aspirin, Norvasc, Namenda, Seroquel , and Aricept as before. The patient's code status was do not resuscitate at the intermediate. We will try to ascertain the same in possible 1 to 2 hours from family. We will continue to closely monitor her on medical floor. Job ID: [id number] [facility]
[2019-02-12 06:09] LABS: Albumin 3.2 g/dL (3.4-4.8); Anion Gap 14 mmol/L (10-20); BUN (Urea Nitrogen) 35 mg/dL (9.8-20.1); BUN/Creatinine Ratio 10.14; Calc. Creatinine Clearance 0 mL/min (70-130); Calcium 8.4 mg/dL (7.8-10.44); Carbon Dioxide 25 mmol/L (23-31); Chloride 107 mmol/L (98-107); Estimated GFR-MDRD 13; Glucose 96 mg/dL (83-110); Phosphorus 4.4 mg/dL (2.3-4.7); Potassium 3.2 mmol/L (3.5-5.1); Sodium 143 mmol/L (136-145)
[2019-02-12 06:15] VITALS: BMI 34.3
[2019-02-12] MEDS ORDERED: Prevnar 13-Val Conj/PF 0.5 ML SYRINGE IM ONE (06:30)
[2019-02-12] MEDS: Lactated Ringer's 1,000 ML IV SCH ×3 (06:30→16:57)
[2019-02-12] MEDS: Enoxaparin Sodium 30 MG/0.3 ML SYRINGE SC SCH (08:48)
[2019-02-12] MEDS: Famotidine 20 MG TAB PO SCH ×2 (08:50→11:11)
[2019-02-12] MEDS: Aspirin 81 mg Enteric Coated Tablet PO SCH ×2 (08:50→11:11)
[2019-02-12] MEDS ORDERED: Lorazepam 2 MG/ML VIAL ONE (11:40)
[2019-02-12] MEDS ORDERED: Lorazepam 2 MG/ML VIAL SLOW IVP SCH (12:15)
[2019-02-12] MEDS: Amlodipine 5 MG TAB PO SCH (20:10)
[2019-02-13] MEDS: Lactated Ringer's 1,000 ML IV SCH (02:41)
[2019-02-13 06:24] LABS: #Eosinphils 0.2 thou/uL (0.0-0.7); #Lymphocytes 1.6 thou/uL (1.20-3.40); #Monocytes 0.4 thou/uL (0.11-0.59); #Neutrophils 4.3 thou/uL (1.40-6.50); %Basophils 0.7 % (0.0-1.0); %Eosinophils 3.1 % (0.0-10.0); %Lymphocytes 24.9 % (21.0-51.0); %Monocytes 6.2 % (0.0-10.0); %Neutrophils 65.1 % (42.0-75.0); Hemoglobin 10.2 g/dL (12.0-16.0); Mean Corpuscular HGB CONC 32.2 g/dL (32.0-36.0); Mean Corpuscular Hemoglobin 30.2 pg (27.0-31.0); Mean Corpuscular Volume 93.8 fL (78.0-98.0); Mean Platelet Volume 8.8 fL (7.4-10.4); Platelet Count 164 thou/uL (130-400); RBC Distribution Width 14.3 % (11.5-14.5); Red Blood Cell (RBC) Count 3.38 mill/uL (4.20-5.40); White Blood Cell (WBC) Count 6.6 thou/uL (4.8-10.8)
[2019-02-13 06:49] LABS: Albumin 2.8 g/dL (3.4-4.8); Anion Gap 12 mmol/L (10-20); BUN (Urea Nitrogen) 37 mg/dL (9.8-20.1); BUN/Creatinine Ratio 12.33; Calc. Creatinine Clearance 21 mL/min (70-130); Calcium 8.3 mg/dL (7.8-10.44); Carbon Dioxide 27 mmol/L (23-31); Chloride 107 mmol/L (98-107); Estimated GFR-MDRD 15; Glucose 119 mg/dL (83-110); Phosphorus 3.8 mg/dL (2.3-4.7); Potassium 3.1 mmol/L (3.5-5.1); Sodium 143 mmol/L (136-145)
[2019-02-13] MEDS: Famotidine 20 MG TAB PO SCH (10:25)
[2019-02-13] MEDS: Aspirin 81 mg Enteric Coated Tablet PO SCH (10:32)
[2019-02-13] MEDS: Enoxaparin Sodium 30 MG/0.3 ML SYRINGE SC SCH (10:32)
--- NOTE | 2019-02-13 12:59 | PDOC.HOSPP ---
- Subjective Encounter Date: 02/13/19 Encounter Time: 12:45 Subjective: f/u for - Objective Vital Signs & Weight: Vital Signs (12 hours) Temp Pulse Pulse Resp BP BP BP 02/13/19 12:07 98.2 F 77 19 103/72 02/13/19 08:59 77 103/68 02/13/19 08:02 98.5 F 77 18 116/63 02/13/19 05:33 99/63 02/13/19 04:00 97.3 F L 65 18 84/52 L Pulse Ox 02/13/19 12:07 93 L 02/13/19 08:59 02/13/19 08:02 93 L 02/13/19 05:33 02/13/19 04:00 92 L Weight Weight 199 lb 15.348 oz I&O: 02/12/19 02/13/19 02/14/19 06:59 06:59 06:59 Intake Total 625 3450 Output Total 600 Balance 625 2850 Result Diagrams: 02/13/19 05:45 02/13/19 05:45 Additional Labs: Accuchecks 02/13/19 02/13/19 02/12/19 12:07 05:11 20:30 POC Glucose 137 H 138 H 133 H 02/12/19 15:18 POC Glucose 111 H Microbiology 02/12/19 11:19 Urine clean catch Urine Culture - Preliminary Non-Hemolytic Streptococcus 02/12/19 05:37 Venous blood - Right Hand Blood Culture - Preliminary Specimen has been received and culture in progress. No Growth to date. 02/12/19 05:37 Venous blood - Left Hand Blood Culture - Preliminary Specimen has been received and culture in progress. No Growth to date. Laboratory Tests 02/11/19 02/11/19 02/12/19 19:46 19:46 05:37 Hgb 11.9 L Potassium 3.3 L 3.2 L BUN 39 H 35 H Creatinine 3.92 H 3.45 H Hospitalist ROS - Medication Medications: Active Medications Generic Name Dose Route Start Last Admin Trade Name Freq PRN Reason Stop Dose Admin Amlodipine Besylate 5 mg 02/12/19 21:00 02/12/19 20:10 Norvasc PO 5 mg QPM SUNIL Administration Aspirin 81 mg 02/12/19 09:00 02/13/19 10:32 Ecotrin PO 81 mg DAILY SUNIL Administration Enoxaparin Sodium 30 mg 02/12/19 09:00 02/13/19 10:32 Lovenox SC 30 mg 0900 SUNIL Administration Famotidine 20 mg 02/12/19 09:00 02/13/19 10:25 Pepcid PO 20 mg DAILY SUNIL Administration Memantine 5 mg 02/12/19 09:00 02/13/19 10:25 Namenda PO 5 mg BID SUNIL Administration Quetiapine Fumarate 50 mg 02/12/19 21:00 02/12/19 20:11 Seroquel PO 50 mg HS SUNIL Administration Sodium Chloride 10 ml 02/12/19 09:00 02/13/19 10:33 Flush - Normal Saline IVF Not Given Q12HR SUNIL - Exam General - other findings: somnolent, awakens to touch and voice Eye: PERRL, anicteric sclera ENT: normocephalic atraumatic, no oropharyngeal lesions Neck: supple, symmetric, no JVD, no thyromegaly Heart: RRR, no gallops, no rubs, normal peripheral pulses, III/IV Respiratory: CTAB, no wheezes, no rales, no ronchi, normal chest expansion Gastrointestinal: soft, non-tender, non-distended, normal bowel sounds Gastrointestinal - other findings: obese Skin: normal turgor, no lesions Musculoskeletal: generalized weakness Psychiatric: oriented to person, somnolent, lethargic Hosp A/P (1) RANCHO (acute kidney injury) Code(s): N17.9 - ACUTE KIDNEY FAILURE, UNSPECIFIED Status: Acute Plan: Slow improvement, continue IVF NS at 50ml/h, avoid nephrotoxic agents, serial creatinine (2) Acute metabolic encephalopathy Code(s): G93.41 - METABOLIC ENCEPHALOPATHY Status: Acute Plan: Likely uremic influence, continue supportive mgmt, IVF's (3) UTI (urinary tract infection) Status: Acute Plan: Suspected, start Rocephin 1gm IV daily, follow clinically (4) Alzheimer's dementia Code(s): G30.9 - ALZHEIMER'S DISEASE, UNSPECIFIED Status: Chronic Plan: Continue home regimen, family support (5) CKD (chronic kidney disease) stage 3, GFR 30-59 ml/min Code(s): N18.3 - CHRONIC KIDNEY DISEASE, STAGE 3 (MODERATE) Status: Chronic Plan: See above - Plan plan discussed w/ family, continue antibiotics, PT/OT, social scientist, out of bed/ambulate, DVT proph w/SCDs Stable currently Continue IVF NS 50ml/h KCL 20meq BID Avoid nephrotoxic meds and limit contrast exposure May need MRI brain if more cooperative and can lay still AM lab: BMP
[2019-02-13] MEDS: cefTRIAXone\\ROCEPHIN 1 GM in Sodium Chloride 0.9% 100 ML IVPB SCH (14:56)
[2019-02-13] MEDS: Sodium Chloride 0.9% 1,000 ML IV SCH (14:57)
[2019-02-13] MEDS: Amlodipine 5 MG TAB PO SCH (20:35)
[2019-02-14 06:07] LABS: Hemoglobin 10.4 g/dL (12.0-16.0); Platelet Count 155 thou/uL (130-400)
[2019-02-14 06:54] LABS: Magnesium 1.7 mg/dL (1.6-2.6)
[2019-02-14] MEDS: Aspirin 81 mg Enteric Coated Tablet PO SCH (08:09)
[2019-02-14] MEDS: Famotidine 20 MG TAB PO SCH (08:10)
[2019-02-14] MEDS: Enoxaparin Sodium 30 MG/0.3 ML SYRINGE SC SCH (08:10)
[2019-02-14] MEDS: Sodium Chloride 0.9% 1,000 ML IV SCH (08:25)
--- NOTE | 2019-02-14 11:34 | PDOC.HOSPP ---
- Subjective Encounter Date: 02/14/19 Subjective: f/u RANCHO on chronic renal failure. Pt arrived with AMS, with underlying dementia. U/A suspicious for UTI, which has begun to be treated with Rocephin starting yesterday. On present encounter, patient's family reports that while she is not back at her baseline, she is much clearer in her speech and more cooperative than yesterday. She had more of an appetite in the past 24 hours, and even requested a meal this morning. She has still been more more "fussy" than usual with nursing and PT, per the family, but seems to be improving overall. - Objective Vital Signs & Weight: Vital Signs (12 hours) Temp Pulse Resp BP Pulse Ox 02/14/19 08:15 93 L 02/14/19 07:18 98.2 F 76 18 110/62 93 L Weight Weight 90.7 kg I&O: 02/13/19 02/14/19 02/15/19 06:59 06:59 06:59 Intake Total 3450 Output Total 600 Balance 2850 Result Diagrams: 02/14/19 05:48 02/13/19 05:45 Additional Labs: Accuchecks 02/14/19 02/13/19 02/13/19 05:36 20:02 12:07 POC Glucose 96 115 H 137 H Creatinine slowly trending down with improving RANCHO. Cr 02/11- 3.92, Cr 02/12- 3.45 H&H stable. Microbiology 02/12/19 11:19 Urine clean catch Urine Culture - Final 02/12/19 11:19 Urine clean catch Urine Culture - Preliminary Non-Hemolytic Streptococcus 02/12/19 05:37 Venous blood - Right Hand Blood Culture - Preliminary Specimen has been received and culture in progress. No Growth to date. 02/12/19 05:37 Venous blood - Right Hand Blood Culture - Preliminary NO GROWTH AT 48 HOURS 02/12/19 05:37 Venous blood - Left Hand Blood Culture - Preliminary Specimen has been received and culture in progress. No Growth to date. 02/12/19 05:37 Venous blood - Left Hand Blood Culture - Preliminary NO GROWTH AT 48 HOURS Laboratory Tests 02/11/19 02/11/19 02/12/19 19:46 19:46 05:37 Hgb 11.9 L Potassium 3.3 L 3.2 L BUN 39 H 35 H Creatinine 3.92 H 3.45 H Phosphorus Magnesium 02/14/19 05:48 Hgb Potassium BUN Creatinine Phosphorus 3.0 Magnesium 1.7 Radiology Reviewed by me: Yes (Echo - EF 50-55%, severe , mod MR) Hospitalist ROS - Review of Systems Constitutional: denies: fever, chills ENT: denies: nose discharge, nose congestion, throat pain Respiratory: denies: cough, shortness of breath Cardiovascular: denies: chest pain, palpitations, light headedness Gastrointestinal: denies: nausea, vomitting, abdominal pain, diarrhea, constipation Genitourinary: denies: dysuria, frequency Neurological: reports: confusion (Endorses confusion on her location and the year). denies: weakness, numbness - Medication Medications: Active Medications Generic Name Dose Route Start Last Admin Trade Name Freq PRN Reason Stop Dose Admin Amlodipine Besylate 5 mg 02/12/19 21:00 02/13/19 20:35 Norvasc PO 5 mg QPM SUNIL Administration Aspirin 81 mg 02/12/19 09:00 02/14/19 08:09 Ecotrin PO 81 mg DAILY SUNIL Administration Enoxaparin Sodium 30 mg 02/12/19 09:00 02/14/19 08:10 Lovenox SC 30 mg 0900 SUNIL Administration Famotidine 20 mg 02/12/19 09:00 02/14/19 08:10 Pepcid PO 20 mg DAILY SUNIL Administration Ceftriaxone Sodium 1 gm/ 100 mls @ 200 mls/hr 02/13/19 13:00 02/13/19 14:56 Sodium Chloride IVPB 100 mls Q24HR SUNIL Administration Sodium Chloride 1,000 mls @ 50 mls/hr 02/13/19 13:15 02/14/19 08:25 Normal Saline 0.9% IV 1,000 mls .Q20H SUNIL Administration Memantine 5 mg 02/12/19 09:00 02/14/19 08:10 Namenda PO 5 mg BID SUNIL Administration Potassium Chloride 20 meq 02/13/19 17:00 02/14/19 08:10 Klor-Con PO 20 meq BID-WM SUNIL Administration Quetiapine Fumarate 50 mg 02/12/19 21:00 02/13/19 20:35 Seroquel PO 50 mg HS SUNIL Administration Sodium Chloride 10 ml 02/12/19 09:00 02/14/19 08:10 Flush - Normal Saline IVF Not Given Q12HR SUNIL - Exam General Appearance: NAD General - other findings: Pleasant and cooperative on exam, but disoriented and somewhat somnolent. Eye: PERRL, anicteric sclera ENT: normocephalic atraumatic, no oropharyngeal lesions, moist mucosa Neck: supple, symmetric, no JVD, no thyromegaly Heart: RRR, no murmur, no gallops, no rubs, diminshed peripheral pulses (1+ radial and distal pedal pulses.) Respiratory: CTAB, no wheezes, no rales, no ronchi, normal chest expansion, no tachypnea Gastrointestinal: soft, non-distended, normal bowel sounds, no palpable masses, no hepatomegaly, no splenomegaly Extremities: no cyanosis, no clubbing, no edema Skin: normal turgor Neurological: no focal deficits Musculoskeletal: generalized weakness Psychiatric: oriented to person, somnolent, lethargic (Not oriented to place or time) Hosp A/P (1) RANCHO (acute kidney injury) Code(s): N17.9 - ACUTE KIDNEY FAILURE, UNSPECIFIED Status: Acute Plan: Renal function slowly continues to improve. Continue IVF NS at 50ml/hr. Avoid nephrotoxic agents, continue serial creatinine measurements. Recheck BMP today, consider Nephrology evaluation if no improvement in 24h (2) Acute metabolic encephalopathy Code(s): G93.41 - METABOLIC ENCEPHALOPATHY Status: Acute Plan: Clinical signs of encephalopathy somewhat improved, continue supportive management of renal component (3) UTI (urinary tract infection) Status: Acute Plan: Suspected, continue Rocephin IV 1gm daily (4) Alzheimer's dementia Code(s): G30.9 - ALZHEIMER'S DISEASE, UNSPECIFIED Status: Chronic Plan: Family is present and supportive at the bedside. (5) CKD (chronic kidney disease) stage 3, GFR 30-59 ml/min Code(s): N18.3 - CHRONIC KIDNEY DISEASE, STAGE 3 (MODERATE) Status: Chronic - Plan plan discussed w/ family, continue antibiotics, health and social care teacher, DVT proph w/ SCDs Stable overall Continue low-volume IVF's Continue Rocephin 1gm IV daily OOB with PT Avoid nephrotoxic meds and limit contrast AM lab: BMP
[2019-02-14] MEDS: cefTRIAXone\\ROCEPHIN 1 GM in Sodium Chloride 0.9% 100 ML IVPB SCH (12:19)
[2019-02-14 18:37] LABS: Anion Gap 12 mmol/L (10-20); BUN (Urea Nitrogen) 27 mg/dL (9.8-20.1); Calc. Creatinine Clearance 28 mL/min (70-130); Calcium 8.3 mg/dL (7.8-10.44); Carbon Dioxide 24 mmol/L (23-31); Chloride 110 mmol/L (98-107); Estimated GFR-MDRD 21; Glucose 148 mg/dL (83-110); Potassium 3.3 mmol/L (3.5-5.1); Sodium 143 mmol/L (136-145)
[2019-02-14] MEDS: Amlodipine 5 MG TAB PO SCH (21:09)
[2019-02-15] MEDS: Sodium Chloride 0.9% 1,000 ML IV SCH (04:33)
[2019-02-15 05:48] LABS: Anion Gap 12 mmol/L (10-20); BUN (Urea Nitrogen) 24 mg/dL (9.8-20.1); Calc. Creatinine Clearance 33 mL/min (70-130); Calcium 8.3 mg/dL (7.8-10.44); Carbon Dioxide 22 mmol/L (23-31); Chloride 112 mmol/L (98-107); Estimated GFR-MDRD 25; Glucose 99 mg/dL (83-110); Potassium 3.2 mmol/L (3.5-5.1); Sodium 143 mmol/L (136-145)
[2019-02-15] MEDS: Famotidine 20 MG TAB PO SCH (08:07)
[2019-02-15] MEDS: Enoxaparin Sodium 30 MG/0.3 ML SYRINGE SC SCH (08:07)
[2019-02-15] MEDS: Aspirin 81 mg Enteric Coated Tablet PO SCH (08:07)
[2019-02-15] MEDS: cefTRIAXone\\ROCEPHIN 1 GM in Sodium Chloride 0.9% 100 ML IVPB SCH (12:18)
--- NOTE | 2019-02-15 14:51 | PDOC.HOSPP ---
- Subjective Encounter Date: 02/15/19 Encounter Time: 14:35 Subjective: f/u for encephalopathy and suspected UTI with Uremia and RANCHO. Still confused per family but ate small amount today. Did not work with PT today. - Objective Vital Signs & Weight: Vital Signs (12 hours) Temp Pulse Resp BP Pulse Ox 02/15/19 10:47 98.6 F 76 18 113/71 96 02/15/19 08:00 98.4 F 77 20 131/87 95 Weight Weight 199 lb 15.348 oz I&O: 02/14/19 02/15/19 02/16/19 06:59 06:59 06:59 Intake Total 2270 240 Output Total 250 Balance 2019 240 Result Diagrams: 02/14/19 05:48 02/15/19 05:10 Additional Labs: Accuchecks 02/15/19 02/15/19 02/14/19 10:45 04:09 21:12 POC Glucose 113 H 96 145 H 02/14/19 16:05 POC Glucose 138 H Microbiology 02/12/19 11:19 Urine clean catch Urine Culture - Final 02/12/19 11:19 Urine clean catch Urine Culture - Preliminary Non-Hemolytic Streptococcus 02/12/19 05:37 Venous blood - Right Hand Blood Culture - Preliminary Specimen has been received and culture in progress. No Growth to date. 02/12/19 05:37 Venous blood - Right Hand Blood Culture - Preliminary NO GROWTH AT 48 HOURS 02/12/19 05:37 Venous blood - Left Hand Blood Culture - Preliminary Specimen has been received and culture in progress. No Growth to date. 02/12/19 05:37 Venous blood - Left Hand Blood Culture - Preliminary NO GROWTH AT 48 HOURS Laboratory Tests 02/11/19 02/11/19 02/12/19 19:46 19:46 05:37 Hgb 11.9 L Potassium 3.3 L 3.2 L BUN 39 H 35 H Creatinine 3.92 H 3.45 H Phosphorus Magnesium 02/14/19 05:48 Hgb Potassium BUN Creatinine Phosphorus 3.0 Magnesium 1.7 Hospitalist ROS - Medication Medications: Active Medications Generic Name Dose Route Start Last Admin Trade Name Freq PRN Reason Stop Dose Admin Amlodipine Besylate 5 mg 02/12/19 21:00 02/14/19 21:09 Norvasc PO Not Given QPM SUNIL Aspirin 81 mg 02/12/19 09:00 02/15/19 08:07 Ecotrin PO 81 mg DAILY SUNIL Administration Enoxaparin Sodium 30 mg 02/12/19 09:00 02/15/19 08:07 Lovenox SC 30 mg 0900 SUNIL Administration Famotidine 20 mg 02/12/19 09:00 02/15/19 08:07 Pepcid PO 20 mg DAILY SUNIL Administration Ceftriaxone Sodium 1 gm/ 100 mls @ 200 mls/hr 02/13/19 13:00 02/15/19 12:18 Sodium Chloride IVPB 100 mls Q24HR SUNIL Administration Sodium Chloride 1,000 mls @ 50 mls/hr 02/13/19 13:15 02/15/19 04:33 Normal Saline 0.9% IV 1,000 mls .Q20H SUNIL Administration Memantine 5 mg 02/12/19 09:00 02/15/19 08:07 Namenda PO 5 mg BID SUNIL Administration Potassium Chloride 20 meq 02/13/19 17:00 02/15/19 08:07 Klor-Con PO 20 meq BID-WM SUNIL Administration Quetiapine Fumarate 50 mg 02/12/19 21:00 02/14/19 21:08 Seroquel PO 50 mg HS SUNIL Administration Sodium Chloride 10 ml 02/12/19 09:00 02/15/19 08:08 Flush - Normal Saline IVF Not Given Q12HR SUNIL - Exam General Appearance: NAD, awake alert Eye: PERRL, anicteric sclera ENT: normocephalic atraumatic, no oropharyngeal lesions Neck: supple, symmetric, no JVD, no thyromegaly Heart: RRR, no murmur, no gallops, no rubs Respiratory: CTAB, no wheezes, no rales, no ronchi, normal chest expansion Gastrointestinal: soft, non-tender, non-distended, normal bowel sounds, no palpable masses Extremities: no cyanosis, no clubbing Skin: normal turgor, no lesions Neurological: CN's grossly intact, no new deficit Psychiatric: oriented to person Hosp A/P (1) RANCHO (acute kidney injury) Code(s): N17.9 - ACUTE KIDNEY FAILURE, UNSPECIFIED Status: Acute Plan: Improved, avoid nephrotoxic agents and limit contrast exposure (2) Acute metabolic encephalopathy Code(s): G93.41 - METABOLIC ENCEPHALOPATHY Status: Acute Plan: Likely near baseline, continue supportive mgmt (3) UTI (urinary tract infection) Status: Acute Plan: Suspected, continue Rocephin another 24h (4) Alzheimer's dementia Code(s): G30.9 - ALZHEIMER'S DISEASE, UNSPECIFIED Status: Chronic (5) CKD (chronic kidney disease) stage 3, GFR 30-59 ml/min Code(s): N18.3 - CHRONIC KIDNEY DISEASE, STAGE 3 (MODERATE) Status: Chronic Plan: Near baseline values, continue IVF's another 24h - Plan plan discussed w/ family, continue antibiotics, PT/OT, social contact worker, out of bed/ambulate, DVT proph w/SCDs Stable overall Continue low-volume IVF's Continue Rocephin 1gm IV daily OOB with PT for mobilization Avoid nephrotoxic meds and limit contrast AM lab: BMP Likely d/c in 24-48h
[2019-02-15] MEDS: Amlodipine 5 MG TAB PO SCH (20:26)
[2019-02-16] MEDS: Sodium Chloride 0.9% 1,000 ML IV SCH (00:37)
[2019-02-16 06:58] LABS: Anion Gap 9 mmol/L (10-20); BUN (Urea Nitrogen) 18 mg/dL (9.8-20.1); Calc. Creatinine Clearance 41 mL/min (70-130); Calcium 8.5 mg/dL (7.8-10.44); Carbon Dioxide 26 mmol/L (23-31); Chloride 112 mmol/L (98-107); Estimated GFR-MDRD 33; Glucose 96 mg/dL (83-110); Potassium 3.6 mmol/L (3.5-5.1); Sodium 143 mmol/L (136-145)
[2019-02-16 07:28] VITALS: BP 119/69; TEMP 97.6
[2019-02-16] MEDS: Enoxaparin Sodium 30 MG/0.3 ML SYRINGE SC SCH (08:58)
[2019-02-16] MEDS: Famotidine 20 MG TAB PO SCH (08:58)
[2019-02-16] MEDS: Aspirin 81 mg Enteric Coated Tablet PO SCH (08:58)
[2019-02-16] MEDS: cefTRIAXone\\ROCEPHIN 1 GM in Sodium Chloride 0.9% 100 ML IVPB SCH (09:00)
--- NOTE | 2019-02-16 21:15 | DIS ---
DATE OF ADMISSION: 02/11/2019 DATE OF DISCHARGE: 02/16/2019 DISCHARGE DIAGNOSES: 1. Acute kidney injury on chronic kidney disease stage 3, resolved. 2. Acute metabolic encephalopathy, multifactorial including uremia, dehydration, and suspected urinary tract infection. 3. Urinary tract infection without identified dominant organism. 4. Alzheimer's dementia, advanced. 5. Severe aortic stenosis, chronic and stable. CONSULTATIONS: None. PERTINENT LABORATORY AND X-RAY FINDINGS: Creatinine ranged between 1.53 to 3.92. Estimated GFR ranged between 11 to 33. BUN ranged between 18 to 39. CBC showed a hemoglobin ranged between 10.4 to 11.9. Blood cultures x2 dated 02/12/2019, showed no growth at 48 hours. Urine culture dated 02/12/2019, showed 75,000 to 100,000 colonies of mixed skin and enteric oly. CT of the brain without contrast dated 02/11/2019, showed no acute intracranial process. Chronic ischemic white matter changes noted. Portable chest x-ray dated 02/11/2019, showed no acute cardiopulmonary process. CT of the abdomen and pelvis dated 02/11/2019, showed mild atrophy of bilateral kidneys. Multiple renal cysts. No obstructive uropathy. 2D transthoracic echocardiogram dated 02/13/2019, showed ejection fraction of 50% to 55%. Moderate left atrial enlargement. Moderate mitral valve regurgitation. Severe aortic stenosis. Moderate tricuspid valve regurgitation. HOSPITAL COURSE: The patient was initially admitted to the medical floor after presenting with acute encephalopathy with associated acute kidney injury and uremia with associated dehydration. The patient was initiated on IV fluids and monitored for clinical response. The patient was noted with suspected urinary tract infection, receiving IV Rocephin. Urine culture was unrevealing to dominant organism; however, the patient continued on IV antibiotic therapy throughout her hospital course. The patient was modified on her chronic medication regimen to avoid nephrotoxic agents and limit contrast exposure due to the acute kidney injury. Serial creatinine showed overall improving values with supportive management and IV fluids. The patient's mentation had improved and returned to baseline levels prior to discharge. I have examined the patient at time of discharge and discussed followup instructions. The patient verbalized understanding and in agreement, ready for discharge on 02/16/2019. DISCHARGE MEDICATIONS: 1. Enteric-coated aspirin 81 mg p.o. daily. 2. BuSpar 10 mg p.o. t.i.d. 3. Vitamin D3 5000 units p.o. daily. 4. Farxiga 5 mg p.o. q.a.m. 5. Aricept 5 mg p.o. at bedtime. 6. Namenda XR 28 mg p.o. at bedtime. 7. Potassium chloride 10 mEq p.o. daily. 8. Seroquel 50 mg p.o. at bedtime. 9. Crestor 10 mg p.o. at bedtime. 10. Onglyza 2.5 mg p.o. daily. 11. Norvasc 5 mg p.o. at bedtime. 12. Lasix 20 mg p.o. daily. 13. Levaquin 250 mg p.o. daily x5 days. 14. Losartan 50 mg p.o. daily. FOLLOWUP: The patient may follow up with Dr. Venus Edmonds. CONDITION ON DISCHARGE: Fair. ACTIVITY: Ad ronnie. Rolling walker with standby/contact guard assistance. DIET: Renal. CODE STATUS: Do not attempt resuscitation. DISPOSITION: Discharged to [facility] on 02/16/2019. Consultation this dictation please send a copy Dr. Edmonds. TIME SPENT: Total time preparing and coordinating discharge, 35 minutes. Job ID: [id number]
== END 2019-02-16 15:23 | DRG 682 ==
LOC: ERS 18:27 → SURG B 22:42 → T4-A 02-12 17:35
PROVIDERS: ADMIT Family Medicine; ATTEND Family Medicine
DX: N17.9 Acute kidney failure, unspecified (principal); G93.41 Metabolic encephalopathy; I13.0 Hypertensive heart and chronic kidney disease with heart failure and stage 1 through stage 4 chronic kidney disease, or unspecified chronic kidney disease; N39.0 Urinary tract infection, site not specified; I48.91 Unspecified atrial fibrillation; Z66 Do not resuscitate; I50.9 Heart failure, unspecified; G30.9 Alzheimer's disease, unspecified; F02.80 Dementia in other diseases classified elsewhere, unspecified severity, without behavioral disturbance, psychotic disturbance, mood disturbance, and anxiety; N18.3 Chronic kidney disease, stage 3 (moderate); I35.0 Nonrheumatic aortic (valve) stenosis; E11.22 Type 2 diabetes mellitus with diabetic chronic kidney disease; E86.0 Dehydration; Z79.82 Long term (current) use of aspirin; Z90.710 Acquired absence of both cervix and uterus; Z88.0 Allergy status to penicillin; Z88.1 Allergy status to other antibiotic agents; Z88.2 Allergy status to sulfonamides; Z79.899 Other long term (current) drug therapy; Z79.84 Long term (current) use of oral hypoglycemic drugs
CPT/HCPCS: 36415; 36416; 51701; 70450; 71045; 74176; 80048; 80053; 80069; 81003; 81015; 83735; 84100; 84484; 85014; 85018; 85025; 85049; 87040; 87086; 93005; 93306; 96360; 96361; A4353; J0696; J1650; J2060; J3490